=== PATIENT | female | born 1985 | race American Indian/Alaskan Native ===

== ENCOUNTER 2016-10-06 10:22 | Emergency (ER) | payer MEDICAID ==
[2016-10-06 10:41] VITALS: BMI 27.1
[2016-10-06 10:45] VITALS: TEMP 98.8; O2SAT 100
[2016-10-06] MEDS ORDERED: Sodium Chloride 0.9% 1,000 ML IV STA ×2 (10:51→10:52)
[2016-10-06 11:14] LABS: URINE BILIRUBIN NEGATIVE (NEGATIVE); URINE BLOOD NEGATIVE (NEGATIVE); URINE GLUCOSE (UA) NEGATIVE (NEGATIVE); URINE LEUKOCYTE ESTERASE NEGATIVE Leu/uL (NEGATIVE); URINE NITRATE NEGATIVE (NEGATIVE); URINE PROTEIN NEGATIVE mg/dL (<30 mg/dL)
[2016-10-06 11:15] LABS: URINE APPEARANCE CLEAR (CLEAR); URINE COLOR YELLOW (YELLOW)
--- NOTE | 2016-10-06 11:44 | ED PDOC ---
Arrival/HPI - General Chief Complaint: GI Problem Time Seen by Provider: 10/06/16 10:51 Historian: Patient - History of Present Illness Narrative History of Present Illness (Text): 10/06/16 11:26 A 30 year old female with who is 16 weeks , has a past medical history of migraines, presents to the emergency department complaining of nausea and non-bilious non-bloody vomiting for 2 days. Patient notes mild abdominal discomfort and a headache but denies any fever, chills, diarrhea, vaginal bleeding, vaginal discharge, dysuria, frequency, hematuria, chest pain, shortness of breath or any other complaints. Patient reports her last menstrual period June 18. PMD: Non-[facility] provider Time/Duration: Other (2 days) Symptom Course: Unchanged Quality: Other Context: Home Past Medical History - Provider Review Nursing Documentation Reviewed: Yes - Infectious Disease Hx of Infectious Diseases: None - Pulmonary Hx Pulmonary Embolism: Yes - Neurological Hx Migraine: Yes - Psychiatric Hx Substance Use: No - Surgical History Hx Orthopedic Surgery: Yes Other/Comment: L knee ACL - Anesthesia Hx Anesthesia: Yes Hx Anesthesia Reactions: No Hx Malignant Hyperthermia: No Family/Social History - Physician Review Nursing Documentation Reviewed: Yes Family/Social History: No Known Family HX Smoking Status: Former Smoker Hx Alcohol Use: No Hx Substance Use: No Allergies/Home Meds Allergies/Adverse Reactions: Allergies No Known Allergies Allergy (Verified 10/06/16 10:41) Home Medications: Home Meds Medication Instructions Recorded Confirmed Vit Calc,Iron,Folic 1 tab PO DAILY 10/06/16 10/06/16 [ Vitamins] Review of Systems - Physician Review All systems were reviewed & negative as marked: Yes - Review of Systems Constitutional: absent: Fevers, Night Sweats Respiratory: absent: SOB Cardiovascular: absent: Chest Pain Gastrointestinal: Abdominal Pain, Nausea, Vomiting. absent: Diarrhea Genitourinary Female: absent: Dysuria, Frequency, Hematuria, Vaginal Bleeding, Vaginal Discharge Neurological: Headache Physical Exam Vital Signs Reviewed: Yes Vital Signs Temp Pulse Resp BP Pulse Ox 10/06/16 15:45 73 16 121/75 100 10/06/16 14:00 75 16 119/73 100 10/06/16 12:24 79 16 120/75 100 10/06/16 10:45 98.8 F 83 18 113/71 100 Temperature: Afebrile Blood Pressure: Normal Pulse: Regular Respiratory Rate: Normal Appearance: Positive for: Well-Appearing, Non-Toxic, Comfortable Pain Distress: None Mental Status: Positive for: Alert and Oriented X 3 - Systems Exam Head: Present: Atraumatic, Normocephalic Pupils: Present: PERRL Extroacular Muscles: Present: EOMI Conjunctiva: Present: Normal Mouth: Present: Moist Mucous Membranes Neck: Present: Normal Range of Motion Respiratory/Chest: Present: Clear to Auscultation, Good Air Exchange. No: Respiratory Distress, Accessory Muscle Use Cardiovascular: Present: Regular Rate and Rhythm, Normal S1, S2. No: Murmurs Abdomen: Present: Normal Bowel Sounds. No: Tenderness, Distention, Peritoneal Signs Back: Present: Normal Inspection Upper Extremity: Present: Normal Inspection. No: Cyanosis, Edema Lower Extremity: Present: Normal Inspection. No: Edema Neurological: Present: GCS=15, CN II-XII Intact, Speech Normal Skin: Present: Warm, Dry, Normal Color. No: Rashes Psychiatric: Present: Alert, Oriented x 3, Normal Insight, Normal Concentration Medical Decision Making ED Course and Treatment: 10/06/16 11:26 Impression: A 30 year old female with non-bilious non-bloody vomiting. Patient notes mild abdominal discomfort and headache. Plan: -- Transvaginal ultrasound -- Labs -- Urine culture and Urinalysis -- Pepcid, Reglan and IV fluids -- Reassess and disposition Progress Notes: - Lab Interpretations Lab Results: 10/06/16 11:30 10/06/16 12:44 Lab Results 10/06/16 12:44: Sodium 135, Potassium 3.9, Chloride 102, Carbon Dioxide 23, Anion Gap 14, BUN 8, Creatinine 0.5, Est GFR ( Amer) > 60, Est GFR (Non- Af Amer) > 60, Random Glucose 72, Calcium 9.6, Total Bilirubin 0.5, AST 28, ALT 84 H, Alkaline Phosphatase 69, Total Protein 7.3, Albumin 3.9, Globulin 3.5, Albumin/Globulin Ratio 1.1, Lipase 82 10/06/16 11:30: Beta HCG, Quant [id number] H 10/06/16 11:30: WBC 5.1, RBC 4.35, Hgb 13.1, Hct 36.7, MCV 84.4, MCH 30.1, MCHC 35.7, RDW 12.1, Plt Count 242, MPV 9.3, Gran % 60.8, Lymph % (Auto) 29.3, [place] % (Auto) 9.7 H, Eos % (Auto) 0.2 L, Baso % (Auto) 0.0, Gran # 3.07, Lymph # 1.5 , [place] # 0.5, Eos # 0.0, Baso # 0.00 10/06/16 11:00: Urine Color Yellow, Urine Appearance Clear, Urine pH 6.0, Ur Specific [place] 1.020, Urine Protein Negative, Urine Glucose (UA) Negative, Urine Ketones Negative, Urine Blood Negative, Urine Nitrate Negative, Urine Bilirubin Negative, Urine Urobilinogen 1.0 H, Ur Leukocyte Esterase Negative I have reviewed the lab results: Yes - RAD Interpretation Radiology Orders: 10/06/16 11:18 AGE [US] Stat - Medication Orders Current Medication Orders: Discontinued Medications Famotidine (Pepcid) 20 mg IVP STAT STA Stop: 10/06/16 10:52 Last Admin: 10/06/16 11:30 Dose: 20 mg Sodium Chloride (Sodium Chloride 0.9%) 1,000 mls @ 1,000 mls/hr IV .Q1H STA Stop: 10/06/16 11:50 Last Admin: 10/06/16 11:30 Dose: 1,000 mls/hr Sodium Chloride (Sodium Chloride 0.9%) 1,000 mls @ 999 mls/hr IV .Q1H1M STA Stop: 10/06/16 11:52 Last Admin: 10/06/16 11:47 Dose: 999 mls/hr Metoclopramide HCl (Reglan) 10 mg IVP STAT STA Stop: 10/06/16 10:52 Last Admin: 10/06/16 11:30 Dose: 10 mg - Scribe Statement The provider has reviewed the documentation as recorded by the Miller Urias Provider Scribe Attestation: All medical record entries made by the Scribe were at my direction and personally dictated by me. I have reviewed the chart and agree that the record accurately reflects my personal performance of the history, physical exam, medical decision making, and the department course for this patient. I have also personally directed, reviewed, and agree with the discharge instructions and disposition. Disposition/Present on Arrival - Present on Arrival Any Indicators Present on Arrival: No History of DVT/PE: No History of Uncontrolled Diabetes: No Urinary Catheter: No History of Decub. Ulcer: No History Surgical Site Infection Following: None - Disposition Have Diagnosis and Disposition been Completed?: Yes Diagnosis: and not yet delivered in first trimester Disposition: HOME/ ROUTINE Disposition Time: 15:40 Condition: GOOD Discharge Instructions (ExitCare): First Trimester (ED) Additional Instructions: Thank you for letting us take care of you today. Your provider was Dr. Bernard. You were treated for abdominal pain in . The emergency medical care you received today was directed at your acute symptoms. If you were prescribed any medication, please fill it and take as directed. It may take several days for your symptoms to resolve. Return to the Emergency Department if your symptoms worsen, do not improve, or if you have any other problems. Please contact your doctor or call one of the physicians/clinics you have been referred to that are listed on the Patient Visit Information form that is included in your discharge packet. Bring any paperwork you were given at discharge with you along with any medications you are taking to your follow up visit. Our treatment cannot replace ongoing medical care by a primary care provider (PCP) outside of the emergency department. Thank you for allowing the [facility] team to be part of your care today. Follow up with your PROCUREMENT CLERK in 2-3 for re-evaluation. Referrals: [facility] De Oliveira Rebigg, [Primary Care Provider] - Follow up with primary Forms: WORK NOTE
[2016-10-06 12:02] LABS: EOS % 0.2 % (1.5-5.0); GRAN # 3.07 (1.4-6.5); GRAN % 60.8 % (50.0-68.0); HEMOGLOBIN 13.1 gm/dL (12.0-16.0); LYMPH # 1.5 (1.2-3.4); LYMPH % 29.3 % (22.0-35.0); MEAN CELL VOLUME 84.4 fL (80.0-105.0); MEAN CORPUSCULAR HEMOGLOBIN 30.1 pg (25.0-35.0); MEAN CORPUSCULAR HGB CONC 35.7 g/dl (31.0-37.0); MEAN PLATELET VOLUME 9.3 fl (7.0-11.0); MONO # 0.5 (0.1-0.6); MONO % 9.7 % (1.0-6.0); PLATELET COUNT 242 10^3/uL (120.0-450.0); RBC 4.35 10^6/uL (3.5-6.1); RED CELL DISTRIBUTION WIDTH 12.1 % (11.5-14.5); WHITE BLOOD COUNT 5.1 10^3/ul (4.5-11.0)
[2016-10-06 13:14] LABS: ALB/GLOB RATIO 1.1 (1.1-1.8); ALBUMIN 3.9 g/dL (3.0-4.8); ALT/SGPT 84 U/L (7-56); AST/SGOT 28 U/L (15-39); BLOOD UREA NITROGEN 8 mg/dL (7-21); CALCIUM 9.6 mg/dL (8.4-10.5); GFR AFRICAN-AMERICAN > 60; GFR NON-AFRICAN AMERICAN > 60; LIPASE 82 U/L (23-300)
[2016-10-06 13:37] VITALS: RESP 16
--- NOTE | 2016-10-06 15:12 | US ---
PROCEDURE: Obstetrical ultrasound HISTORY: r/o ectopic - suprapubic pain COMPARISON: Not available TECHNIQUE: Transabdominal FINDINGS: There is a single live intrauterine gestation identified. The heart rate is 160 beats per minute. The gestational sac diameter corresponds to 10 weeks 3 days. The crown-rump length corresponds to 10 weeks 4 days. The average ultrasound age is 10 weeks 4 days. The REN by ultrasound is 04/30/2017 A 4 mm yolk sac is visualized. The uterus measures 12.1 x 7.5 x 8.1 cm. There is no uterine mass identified. The cervix measures 3.4 cm in length and is closed. The right ovary measures 2.6 x 1.9 x 4.1 cm. Normal flow is demonstrated. The left ovary measures 3.0 x 1.5 x 2.7 cm. Normal flow is demonstrated. IMPRESSION: Single live intrauterine gestation of approximately 10 weeks 4 days gestational age. heart rate 160 beats per minute. REN is 04/30/2017 by ultrasound. Cervix long and closed.
[2016-10-06 15:46] VITALS: BP 121/75; PULSE 73
== END 2016-10-06 15:46 | disposition home or self-care (01) ==
LOC: ED 10:22 → MERGE 10:22 → ED 15:46
DX: O26.891 Other specified pregnancy related conditions, first trimester (principal); Z3A.10 10 weeks gestation of pregnancy
CPT/HCPCS: 76815; 80053; 81003; 83690; 84702; 85025; 87086; 96361; 96374; 96375; 99285; J2765; J7040

== ENCOUNTER 2017-04-16 19:39 | Emergency (ER) | payer MEDICAID, OTHER ==
[2017-04-16 19:39] VITALS: BMI 27.1
[2017-04-16 20:12] VITALS: TEMP 98; O2SAT 100
[2017-04-16 20:37] LABS: BASO # 0.02 K/mm3 (0.0-2.0); BASO % 0.3 % (0.0-3.0); EOS # 0.1 (0.0-0.7); EOS % 1.6 % (1.5-5.0); GRAN # 3.66 (1.4-6.5); GRAN % 54.8 % (50.0-68.0); HEMOGLOBIN 11.9 g/dL (12.0-16.0); LYMPH # 2.4 (1.2-3.4); LYMPH % 35.5 % (22.0-35.0); MEAN CELL VOLUME 93.6 fl (80.0-105.0); MEAN CORPUSCULAR HEMOGLOBIN 31.6 pg (25.0-35.0); MEAN CORPUSCULAR HGB CONC 33.8 g/dl (31.0-37.0); MEAN PLATELET VOLUME 9.3 fl (7.0-11.0); MONO # 0.5 (0.1-0.6); MONO % 7.8 % (1.0-6.0); RBC 3.76 10^6/uL (3.5-6.1); RED CELL DISTRIBUTION WIDTH 12.4 % (11.5-14.5); WHITE BLOOD COUNT 6.7 10^3/ul (4.5-11.0)
[2017-04-16 20:41] LABS: PH,URINE 6.5 (4.7-8.0); URINE BILIRUBIN NEGATIVE (NEGATIVE); URINE BLOOD LARGE (NEGATIVE); URINE GLUCOSE (UA) NEGATIVE (NEGATIVE); URINE LEUKOCYTE ESTERASE LARGE Leu/uL (NEGATIVE); URINE NITRATE NEGATIVE (NEGATIVE); URINE PROTEIN 30 mg/dL (<30 mg/dL); URINE UROBILINOGEN 0.2 E.U./dL (<1 E.U./dL)
[2017-04-16 20:42] LABS: URINE APPEARANCE CLOUDY (CLEAR); URINE COLOR YELLOW (YELLOW)
[2017-04-16 20:43] LABS: INR 1.02 (0.93-1.08); PARTIAL THROMBOPLASTIN TIME 26.3 Seconds (25.1-36.5); PROTHROMBIN TIME 11.6 SECONDS (9.4-12.5)
[2017-04-16 20:48] LABS: ALBUMIN 3.5 g/dL (3.0-4.8); ALT/SGPT 56 U/L (7-56); AST/SGOT 28 U/L (14-36); BLOOD UREA NITROGEN 9 mg/dL (7-21); CALCIUM 10.2 mg/dL (8.4-10.5); GFR AFRICAN-AMERICAN > 60; GFR NON-AFRICAN AMERICAN > 60
[2017-04-16 20:52] LABS: URINE BACTERIA SMALL (NEG); URINE WBC TNTC /hpf (0-6)
[2017-04-16] MEDS ORDERED: Enoxaparin 40 mg Syringe SC STA (22:43)
[2017-04-16 23:29] VITALS: BP 128/82; PULSE 82; RESP 16
--- NOTE | 2017-04-16 23:47 | ED PDOC ---
Arrival/HPI - General Chief Complaint: Lower Extremity Problem/Injury Time Seen by Provider: 04/16/17 20:08 Historian: Patient - History of Present Illness Narrative History of Present Illness (Text): 04/16/17 20:11 31 year old female, whose past medical history includes migraines and Pulmonary Embolism, presents to the Emergency department complaining of bilateral leg swelling for 2-3 days. Patient informs one week ago s/p induction. Patient states she was supposed to be on 40mg subcutaneous Lovenox for DVT prophylaxis but was unable to refill her prescription. Patient states her pharmacy did not receive the prescription yet. Patient denies any fever, chills , nausea, vomiting, chest pain, shortness of breath, abdominal pain or any other complaints. 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 - Integumentary Hx Dermatological Disorder: No - Musculoskeletal/Rheumatological Hx Musculoskeletal Disorders: No - Gastrointestinal Hx Gastrointestinal Disorders: No - Genitourinary/Gynecological Hx Genitourinary Disorders: No - Psychiatric Hx Psychophysiologic Disorder: No Hx Substance Use: No - Surgical History Hx Orthopedic Surgery: Yes Other/Comment: L knee ACL - Anesthesia Hx Anesthesia: Yes Hx Anesthesia Reactions: No Hx Malignant Hyperthermia: No Family/Social History - Physician Review Nursing Documentation Reviewed: Yes Family/Social History: No Known Family HX Smoking Status: Former Smoker Hx Alcohol Use: No Hx Substance Use: No Allergies/Home Meds Allergies/Adverse Reactions: Allergies No Known Allergies Allergy (Verified 04/16/17 20:11) Home Medications: Home Meds Medication Instructions Recorded Confirmed Vit Calc,Iron,Folic 1 tab PO DAILY 10/06/16 10/06/16 [ Vitamins] Review of Systems - Physician Review All systems were reviewed & negative as marked: Yes - Review of Systems Constitutional: Normal. absent: Fevers Eyes: Normal ENT: Normal Respiratory: Normal. absent: SOB Cardiovascular: Normal. absent: Chest Pain Gastrointestinal: Normal. absent: Abdominal Pain, Nausea, Vomiting Genitourinary Female: Normal Musculoskeletal: Other (Bilateral leg swelling) Skin: Normal Neurological: Normal Endocrine: Normal Hemo/Lymphatic: Normal Psychiatric: Normal Physical Exam Vital Signs Reviewed: Yes Vital Signs Temp Pulse Resp BP Pulse Ox 04/16/17 23:28 82 16 128/82 100 04/16/17 20:07 98.0 F 76 18 127/80 100 Temperature: Afebrile Blood Pressure: Normal Pulse: Regular Respiratory Rate: Normal Appearance: Positive for: Well-Appearing, Non-Toxic, Comfortable Pain Distress: None Mental Status: Positive for: Alert and Oriented X 3 - Systems Exam Head: Present: Atraumatic, Normocephalic Pupils: Present: PERRL Extroacular Muscles: Present: EOMI Conjunctiva: Present: Normal Mouth: Present: Moist Mucous Membranes Neck: Present: Normal Range of Motion Respiratory/Chest: Present: Clear to Auscultation, Good Air Exchange. No: Respiratory Distress, Accessory Muscle Use Cardiovascular: Present: Regular Rate and Rhythm, Normal S1, S2. No: Murmurs Abdomen: Present: Normal Bowel Sounds. No: Tenderness, Distention, Peritoneal Signs Back: Present: Normal Inspection Upper Extremity: Present: Normal Inspection, NORMAL PULSES. No: Cyanosis, Edema Lower Extremity: Present: Edema (Bilateral pital pedal edema+1 ), NORMAL PULSES Neurological: Present: GCS=15, CN II-XII Intact, Speech Normal Skin: Present: Warm, Dry, Normal Color. No: Rashes Psychiatric: Present: Alert, Oriented x 3, Normal Insight, Normal Concentration Medical Decision Making ED Course and Treatment: 04/17/17 20:11 Impression: 31 year old female presents to the Emergency department for bilateral leg swelling. Plan: -- Labs -- Lovenox -- Urine Culture -- Urinalysis -- US of Lower Extremity -- Reassess and disposition Progress Notes: - Lab Interpretations Lab Results: 04/16/17 20:20 04/16/17 20:20 Lab Results 04/16/17 20:27: Urine Color Yellow, Urine Appearance Cloudy, Urine pH 6.5, Ur Specific [place] 1.015, Urine Protein 30 H, Urine Glucose (UA) Negative, Urine Ketones Negative, Urine Blood Large H, Urine Nitrate Negative, Urine Bilirubin Negative, Urine Urobilinogen 0.2, Ur Leukocyte Esterase Large H, Urine RBC 2 - 5 , Urine WBC Tntc, Ur Epithelial Cells 1 - 3, Urine Bacteria Small 04/16/17 20:20: Sodium 141, Potassium 4.0, Chloride 107, Carbon Dioxide 25, Anion Gap 13, BUN 9, Creatinine 0.7, Est GFR ( Amer) > 60, Est GFR (Non- Af Amer) > 60, Random Glucose 69 L, Calcium 10.2, Total Bilirubin 0.3, AST 28, ALT 56, Alkaline Phosphatase 116, Total Protein 6.9, Albumin 3.5, Globulin 3.4, Albumin/Globulin Ratio 1.0 L 04/16/17 20:20: PT 11.6, INR 1.02, APTT 26.3 04/16/17 20:20: WBC 6.7 D, RBC 3.76, Hgb 11.9 L, Hct 35.2 L, MCV 93.6, MCH 31.6 , MCHC 33.8, RDW 12.4, Plt Count 266, MPV 9.3, Gran % 54.8, Lymph % (Auto) 35.5 H, [place] % (Auto) 7.8 H, Eos % (Auto) 1.6, Baso % (Auto) 0.3, Gran # 3.66, Lymph # 2.4, [place] # 0.5, Eos # 0.1, Baso # 0.02 - RAD Interpretation Radiology Orders: 04/16/17 20:11 DUPLEX LOWER EXTRM VEIN BILAT [US] Stat - Medication Orders Current Medication Orders: Discontinued Medications Enoxaparin Sodium (Lovenox) 40 mg SC STAT STA PRN Reason: Protocol Stop: 04/16/17 22:44 Last Admin: 04/16/17 23:22 Dose: 40 mg Subcutaneous Administrations Document 04/16/17 23:22 [place] (Rec: 04/16/17 23:23 [place] [id number]) Injection Site MAR Injection Site Right Abdomen Charges for Administration # of Subcutaneous Administrations 1 - Scribe Statement The provider has reviewed the documentation as recorded by the Devaniblisa Krishnamurthy. All medical record entries made by the Scribe were at my direction and personally dictated by me. I have reviewed the chart and agree that the record accurately reflects my personal performance of the history, physical exam, medical decision making, and the department course for this patient. I have also personally directed, reviewed, and agree with the discharge instructions and disposition. Disposition/Present on Arrival - Present on Arrival Any Indicators Present on Arrival: No History of DVT/PE: Yes History of Uncontrolled Diabetes: No Urinary Catheter: No History of Decub. Ulcer: No History Surgical Site Infection Following: Orthopedic Procedures - Disposition Have Diagnosis and Disposition been Completed?: Yes Diagnosis: Leg swelling Disposition: HOME/ ROUTINE Disposition Time: 22:00 Condition: GOOD Discharge Instructions (ExitCare): Leg Edema (ED) Additional Instructions: Thank you for letting us take care of you today. The emergency medical care you received today was directed at your acute symptoms. If you were prescribed any medication, please fill it and take as directed. It may take several days for your symptoms to resolve. Return to the Emergency Department if your symptoms worsen, do not improve, or if you have any other problems. Please contact your doctor or call one of the physicians/clinics you have been referred to that are listed on the Patient Visit Information form that is included in your discharge packet. Bring any paperwork you were given at discharge with you along with any medications you are taking to your follow up visit. Our treatment cannot replace ongoing medical care by a primary care provider (PCP) outside of the emergency department. Thank you for allowing the [facility] team to be part of your care today. You received Lovenox here in the ER. Go to your pharmacy tomorrow to bean picker the Lovenox prescription. Please follow up with your CHRISTIAN SCIENCE PRACTITIONER doctor in 1-2 days for follow up. Referrals: Rachel Tuttle MD [Primary Care Provider] - Follow up with primary Forms: [employer] (German)
--- NOTE | 2017-04-17 18:46 | US ---
HISTORY: Leg pain and swelling. Evaluate for DVT PHYSICIAN(S): Juan Alberto Rogel MD. TECHNIQUE: Duplex sonography and color-flow Doppler with graded compression were used to evaluate the deep venous systems of both lower extremities. FINDINGS: The visualized deep venous systems of both lower extremities are sonographically normal and compressible. Normal wave forms and augmentation are seen. There is no sonographic evidence for deep venous thrombosis in the visualized segments of both lower extremities. IMPRESSION: No sonographic evidence for deep venous thrombosis in the visualized segments of both lower extremities.
== END 2017-04-16 23:29 | disposition home or self-care (01) ==
LOC: ED 19:39
DX: M79.89 Other specified soft tissue disorders (principal); Z86.711 Personal history of pulmonary embolism; Z79.01 Long term (current) use of anticoagulants
CPT/HCPCS: 80053; 81001; 85025; 85610; 85730; 93970; 96372; 99284; J1650

== ENCOUNTER 2017-06-08 22:47 | Emergency (ER) | payer OTHER ==
[2017-06-08 22:48] VITALS: BMI 27.1
[2017-06-08 23:28] VITALS: RESP 18
--- NOTE | 2017-06-09 00:13 | ED PDOC ---
Arrival/HPI <Derrell Pelaez - Last Filed: 06/09/17 05:59> - General Historian: Patient EM Caveat: Acuity of Condition - History of Present Illness Time/Duration: 24 hours Symptom Onset: Gradual Symptom Course: Unchanged, Worsening Quality: Aching, Pressure, Tightness Severity Level: Moderate Activities at Onset: Rest Context: Sitting, Standing, Walking, Exertion, Home <Chrissy Villalobos - Last Filed: 06/09/17 10:44> - General Chief Complaint: Lower Extremity Problem/Injury Time Seen by Provider: 06/09/17 00:02 - History of Present Illness Narrative History of Present Illness (Text): 06/09/17 00:05 Pt is a 31 year old female with a PMH of PE, presents to the ED for evaluation of bilateral Lower leg pain and swelling, left worse than the right for the past 2 days. Pt reports onset of LE swelling s/p delivery of her baby 2 months ago. Pt was assessed for a DVT here in the ER one month ago and discharged with negative DVT/PE. Reports worsening of pain while standing and walking. There is associated pain in the low back and hips. Pt reports that during her , she had severe sciatica with referral down the left leg. Denies fever, shortness of breath, chest pain, or any other complaints. 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 - Integumentary Hx Dermatological Disorder: No - Musculoskeletal/Rheumatological Hx Musculoskeletal Disorders: No - Gastrointestinal Hx Gastrointestinal Disorders: No - Genitourinary/Gynecological Hx Genitourinary Disorders: No - Psychiatric Hx Psychophysiologic Disorder: No Hx Substance Use: No - Surgical History Hx Orthopedic Surgery: Yes (l knee acl) Other/Comment: L knee ACL - Anesthesia Hx Anesthesia: Yes Hx Anesthesia Reactions: No Hx Malignant Hyperthermia: No <Chrissy Villalobos - Last Filed: 06/09/17 10:44> Family/Social History - Physician Review Nursing Documentation Reviewed: Yes Family/Social History: Unknown Family HX Smoking Status: Former Smoker Hx Alcohol Use: No Hx Substance Use: No <Chrissy Villalobos - Last Filed: 06/09/17 10:44> Allergies/Home Meds <Derrell Pelaez - Last Filed: 06/09/17 05:59> <Chrissy Villalobos - Last Filed: 06/09/17 10:44> Allergies/Adverse Reactions: Allergies No Known Allergies Allergy (Verified 06/08/17 23:23) Home Medications: Home Meds Medication Instructions Recorded Confirmed No Known Home Med 06/08/17 06/08/17 Review of Systems - Review of Systems Constitutional: Normal Eyes: Normal ENT: Normal Respiratory: Normal Cardiovascular: Normal Gastrointestinal: Normal Genitourinary Female: Normal Musculoskeletal: Back Pain, Joint Swelling (bilateral ankles) Skin: Normal Neurological: Normal Endocrine: Normal Hemo/Lymphatic: Normal Psychiatric: Normal <Chrissy Villalobos - Last Filed: 06/09/17 10:44> Physical Exam Vital Signs Reviewed: Yes Temperature: Afebrile Blood Pressure: Normal Pulse: Regular Respiratory Rate: Normal Appearance: Positive for: Well-Appearing, Non-Toxic, Comfortable Pain Distress: Mild Mental Status: Positive for: Alert and Oriented X 3 - Systems Exam Head: Present: Atraumatic, Normocephalic Pupils: Present: PERRL Extroacular Muscles: Present: EOMI Conjunctiva: Present: Normal Mouth: Present: Moist Mucous Membranes Neck: Present: Normal Range of Motion Respiratory/Chest: Present: Clear to Auscultation, Good Air Exchange. No: Respiratory Distress, Accessory Muscle Use Cardiovascular: Present: Regular Rate and Rhythm, Normal S1, S2. No: Murmurs Abdomen: Present: Normal Bowel Sounds. No: Tenderness, Distention, Peritoneal Signs Back: Present: Normal Inspection Upper Extremity: Present: Normal Inspection. No: Cyanosis, Edema Lower Extremity: Present: Normal Inspection, NORMAL PULSES, Normal ROM, Tenderness (left ankle and calf pain), Swelling (bilateral LE, L>R), Neurovascularly Intact. No: Edema, CALF TENDERNESS, Cyanosis, Radha's Sign, Erythema, Deformity, Temperature Abnormalties, Capillary Refill < 2 s, Other Neurological: Present: GCS=15, CN II-XII Intact, Speech Normal, Motor Func Grossly Intact, Normal Sensory Function, Norm Deep Tendon Reflexes, Gait Normal Skin: Present: Warm, Dry, Normal Color. No: Rashes Psychiatric: Present: Alert, Oriented x 3, Normal Insight, Normal Concentration <GriseldaChrissy paredes Wendy - Last Filed: 06/09/17 10:44> Vital Signs Temp Pulse Resp BP Pulse Ox 06/09/17 06:17 98.1 F 84 18 116/86 99 06/09/17 03:20 97.6 F 90 18 118/95 H 99 06/08/17 23:23 98.0 F 87 18 127/75 100 Medical Decision Making <Derrell Pelaez - Last Filed: 06/09/17 05:59> - Lab Interpretations I have reviewed the lab results: Yes (D-dimer 399) - RAD Interpretation Kennel Attendant: Radiologist - EKG Interpretation Interpreted by ED Physician: Yes <GriseldaChrissy L - Last Filed: 06/09/17 10:44> ED Course and Treatment: EKG: Ordered, reviewed, and independently interpreted the EKG. Rate : 76 BPM Rhythm : NSR Interpretation : 1st degree AV block 06/09/17 05:55 CT Angiography Chest With Intravenous Contrast FINDINGS: Pulmonary arteries: Examination is limited due to technique. No large central pulmonary artery emboli are identified. Segmental and/or subsegmental pulmonary artery emboli may not be seen on this exam. Aorta: No acute findings. No thoracic aortic aneurysm. Lungs: Unremarkable. No mass. No consolidation. Pleural space: Unremarkable. No significant effusion. No pneumothorax. Heart: Unremarkable. No cardiomegaly. No significant pericardial effusion. No evidence of RV dysfunction. Bones/joints: No acute fracture. No dislocation. Soft tissues: Unremarkable. Lymph nodes: Unremarkable. No enlarged lymph nodes. IMPRESSION: Examination is limited due to technique. No large central pulmonary artery emboli are identified. Segmental and/or subsegmental pulmonary artery emboli may not be seen on this exam. Dictated and Authenticated by: Abdulaizz Ferguson MD 06/09/2017 5:37 AM Eastern Time ([place] & [place]) (Derrell Pelaez) 06/09/17 00:13 Impression Pt is a 31 year old female with a PMH of PE, presents to the ED for evaluation of bilateral Lower leg pain and swelling, left worse than the right for the past 2 days. Negative Radha sign bilat, mild calf tenderness of the Left LE, Neg SLR bilateral; point tenderness of the left ankle in flexion and extension Ddx: DVT Lumbar radiculopathy peripheral neuropathy Plan doppler to r/o DVT labs assess and dispo Lovenox 40mg Progress Note Radiology consult reported NEG bilateral duplex of the LE D-dimer of 399; Wells Score for DVT: 1 (low probability); Wells Score for PE: 4.5 (intermed) Pt has no chest pain or shortness of breath and rests comfortably in bed *Endorsed to Dr. Adilene Pelaez before disposition (Chrissy Villalobos) - Lab Interpretations Lab Results: 06/09/17 02:35 06/09/17 02:35 Lab Results 06/09/17 02:35: PT 11.0, INR 0.97, APTT 30.5, D-Dimer, Quantitative 399 H 06/09/17 02:35: Sodium 138, Potassium 3.8, Chloride 104, Carbon Dioxide 27, Anion Gap 11, BUN 13, Creatinine 0.8, Est GFR ( Amer) > 60, Est GFR (Non- Af Amer) > 60, Random Glucose 112 H, Calcium 9.6, Total Bilirubin 0.2, AST 57 H D, ALT 94 H, Alkaline Phosphatase 82, Total Protein 6.8, Albumin 3.6, Globulin 3.2, Albumin/Globulin Ratio 1.1 06/09/17 02:35: Urine Color Yellow, Urine Appearance Clear, Urine pH 6.0, Ur Specific [place] 1.015, Urine Protein Negative, Urine Glucose (UA) Negative, Urine Ketones Negative, Urine Blood Negative, Urine Nitrate Negative, Urine Bilirubin Negative, Urine Urobilinogen 0.2, Ur Leukocyte Esterase Negative 06/09/17 02:35: WBC 7.4, RBC 3.95, Hgb 11.8 L, Hct 34.6 L, MCV 87.6 D, MCH 29.9 , MCHC 34.1, RDW 11.9, Plt Count 270, MPV 8.8, Gran % 48.2 L, Lymph % (Auto) 41.9 H, [place] % (Auto) 7.6 H, Eos % (Auto) 2.0, Baso % (Auto) 0.3, Gran # 3.56, Lymph # (Auto) 3.1, [place] # (Auto) 0.6, Eos # (Auto) 0.2, Baso # (Auto) 0.02 - RAD Interpretation Narrative RAD Interpretations (Text): 06/09/17 02:12 Venous doppler of the bilateral LE NEGATIVE (Chrissy Villalobos) Radiology Orders: 06/09/17 00:02 DUPLEX LOWER EXTRM VEIN BILAT [US] Stat 06/09/17 03:31 ANGIO CHEST PE PROTOCOL [CT] Stat - Medication Orders Current Medication Orders: Discontinued Medications Enoxaparin Sodium (Lovenox) 40 mg SC STAT STA PRN Reason: Protocol Stop: 06/09/17 01:46 Last Admin: 06/09/17 03:14 Dose: 40 mg MAR aPTT Document 06/09/17 03:14 ELI (Rec: 06/09/17 03:16 ELI [id number]) aPTT aPTT (secs) 30.5 Subcutaneous Administrations Document 06/09/17 03:14 ELI (Rec: 06/09/17 03:16 ELI [id number]) Injection Site MAR Injection Site Right Abdomen Charges for Administration # of Subcutaneous Administrations 1 Disposition/Present on Arrival - Disposition Disposition Time: 03:19 Patient Plan: Discharge <Derrell Pelaez - Last Filed: 06/09/17 05:59> - Present on Arrival Any Indicators Present on Arrival: Yes History of DVT/PE: No History of Uncontrolled Diabetes: No Urinary Catheter: No History of Decub. Ulcer: No History Surgical Site Infection Following: None - Disposition Have Diagnosis and Disposition been Completed?: Yes Patient Plan: Discharge <Chrissy Villalobos - Last Filed: 06/09/17 10:44> - Disposition Diagnosis: Dependent edema Disposition: HOME/ ROUTINE Condition: GOOD Additional Instructions: Deabeth Loza, Thank you for letting us take care of you today. The emergency medical care you received today was directed at your acute symptoms. If you were prescribed any medication, please fill it and take as directed. It may take several days for your symptoms to resolve. Return to the Emergency Department if your symptoms worsen, do not improve, or if you have any other problems. Your ULTRASOUND was negative for blood clots, Your CT Angio of the Chest did not show any PE. Please contact your doctor or call one of the physicians/clinics you have been referred to that are listed on the Patient Visit Information form that is included in your discharge packet. Bring any paperwork you were given at discharge with you along with any medications you are taking to your follow up visit. Our treatment cannot replace ongoing medical care by a primary care provider (PCP) outside of the emergency department. Thank you for allowing the [facility] team to be part of your care today. Elevate your legs as much as possible, follow up with your regular doctor later this week Best- Dr. Derrell Pelaez Referrals: Rachel Tuttle MD [Primary Care Provider] - Follow up with primary Iain Coronado MD [Staff Provider] - Follow up with primary Forms: [employer] ([place])
[2017-06-09] MEDS ORDERED: Enoxaparin 40 mg Syringe SC STA (01:45)
[2017-06-09 02:49] LABS: URINE APPEARANCE CLEAR (CLEAR); URINE BILIRUBIN NEGATIVE (NEGATIVE); URINE BLOOD NEGATIVE (NEGATIVE); URINE COLOR YELLOW (YELLOW); URINE GLUCOSE (UA) NEGATIVE (NEGATIVE); URINE LEUKOCYTE ESTERASE NEGATIVE Leu/uL (NEGATIVE); URINE PROTEIN NEGATIVE mg/dL (<30 mg/dL); URINE UROBILINOGEN 0.2 E.U./dL (<1 E.U./dL)
[2017-06-09 02:52] LABS: BASO # 0.02 K/mm3 (0.0-2.0); BASO % 0.3 % (0.0-3.0); EOS # 0.2 (0.0-0.7); GRAN # 3.56 (1.4-6.5); GRAN % 48.2 % (50.0-68.0); HEMOGLOBIN 11.8 g/dL (12.0-16.0); LYMPH # 3.1 (1.2-3.4); LYMPH % 41.9 % (22.0-35.0); MEAN CORPUSCULAR HEMOGLOBIN 29.9 pg (25.0-35.0); MEAN CORPUSCULAR HGB CONC 34.1 g/dl (31.0-37.0); MEAN PLATELET VOLUME 8.8 fl (7.0-11.0); MONO # 0.6 (0.1-0.6); MONO % 7.6 % (1.0-6.0); RBC 3.95 10^6/uL (3.5-6.1); RED CELL DISTRIBUTION WIDTH 11.9 % (11.5-14.5); WHITE BLOOD COUNT 7.4 10^3/ul (4.5-11.0)
[2017-06-09 02:55] LABS: MEAN CELL VOLUME 87.6 fl (80.0-105.0)
[2017-06-09 02:57] LABS: ALB/GLOB RATIO 1.1 (1.1-1.8); ALBUMIN 3.6 g/dL (3.0-4.8); ALT/SGPT 94 U/L (7-56); AST/SGOT 57 U/L (14-36); BLOOD UREA NITROGEN 13 mg/dL (7-21); CALCIUM 9.6 mg/dL (8.4-10.5); GFR AFRICAN-AMERICAN > 60; GFR NON-AFRICAN AMERICAN > 60
[2017-06-09 03:03] LABS: INR 0.97 (0.93-1.08); PARTIAL THROMBOPLASTIN TIME 30.5 Seconds (25.1-36.5)
[2017-06-09 03:27] VITALS: O2SAT 99
[2017-06-09] MEDS ORDERED: Iodixanol 320 MG/ML 100 ML BOTTLE IV ONE (04:27)
--- NOTE | 2017-06-09 05:37 | CT ---
EXAM: CT Angiography Chest With Intravenous Contrast CLINICAL HISTORY: 31 years old, female; Abnormal findings; Abnormal diagnostic tests; Elevated d-dimer TECHNIQUE: Axial computed tomographic angiography images of the chest with intravenous contrast using pulmonary embolism protocol. All CT scans at this facility use one or more dose reduction techniques, viz.: automated exposure control; ma/kV adjustment per patient size (including targeted exams where dose is matched to indication; i.e. head); or iterative reconstruction technique. MIP reconstructed images were created and reviewed. Coronal and sagittal reformatted images were created and reviewed. CONTRAST: 96 mL of visi 320 administered intravenously. COMPARISON: No relevant prior studies available. FINDINGS: Pulmonary arteries: Examination is limited due to technique. No large central pulmonary artery emboli are identified. Segmental and/or subsegmental pulmonary artery emboli may not be seen on this exam. Aorta: No acute findings. No thoracic aortic aneurysm. Lungs: Unremarkable. No mass. No consolidation. Pleural space: Unremarkable. No significant effusion. No pneumothorax. Heart: Unremarkable. No cardiomegaly. No significant pericardial effusion. No evidence of RV dysfunction. Bones/joints: No acute fracture. No dislocation. Soft tissues: Unremarkable. Lymph nodes: Unremarkable. No enlarged lymph nodes. IMPRESSION: Examination is limited due to technique. No large central pulmonary artery emboli are identified. Segmental and/or subsegmental pulmonary artery emboli may not be seen on this exam.
[2017-06-09 06:18] VITALS: BP 116/86; PULSE 84; TEMP 98.1
--- NOTE | 2017-06-09 10:00 | CARD ---
APPROVED REPORT EKG Measurement Heart [id number] <Conclusion> Sinus rhythm with 1st degree AV block Otherwise normal ECG
== END 2017-06-09 06:18 | disposition home or self-care (01) ==
LOC: ED 22:47
DX: R60.9 Edema, unspecified (principal)
CPT/HCPCS: 71275; 80053; 81003; 85025; 85378; 85610; 85730; 93005; 93970; 96372; 99285; J1650; Q9967

== ENCOUNTER 2018-01-05 19:23 | Emergency (ER) | payer OTHER ==
[2018-01-05 20:16] VITALS: BMI 33.4
[2018-01-05 20:18] VITALS: RESP 19; TEMP 98.5
[2018-01-05] MEDS ORDERED: Morphine 2 mg/ml ISec IVP STA (20:57)
[2018-01-05 21:57] LABS: BASO # 0.02 K/mm3 (0.0-2.0); BASO % 0.2 % (0.0-3.0); EOS # 0.2 (0.0-0.7); EOS % 1.9 % (1.5-5.0); GRAN # 4.55 (1.4-6.5); GRAN % 53.6 % (50.0-68.0); HEMOGLOBIN 13.1 g/dL (12.0-16.0); LYMPH # 3.3 (1.2-3.4); LYMPH % 38.6 % (22.0-35.0); MEAN CELL VOLUME 85.6 fl (80.0-105.0); MEAN CORPUSCULAR HEMOGLOBIN 29.1 pg (25.0-35.0); MEAN PLATELET VOLUME 9.1 fl (7.0-11.0); MONO # 0.5 (0.1-0.6); MONO % 5.7 % (1.0-6.0); RBC 4.5 10^6/uL (3.5-6.1); RED CELL DISTRIBUTION WIDTH 12.1 % (11.5-14.5); WHITE BLOOD COUNT 8.5 10^3/ul (4.5-11.0)
--- NOTE | 2018-01-05 21:58 | ED PDOC ---
Arrival/HPI - General Historian: Patient - History of Present Illness Narrative History of Present Illness (Text): 01/05/18 21:55 32 year old female, whose past medical history includes migraines and Pulmonary Embolism, presents to the Emergency department with pain to right knee and back. Patient states her back pain feels like a spasm that is not getting better. Patient informs PMD put her on Flexeril, which did not help her pain. Patient has a history of protein C and factor 5 deficiency. Patient denies any fever, shortness of breath, recent travel, numbness, weakness, trauma, or any other complaint. Time/Duration: Prior to Arrival <Denae Florentino PA-C - Last Filed: 01/06/18 16:38> <Shubham Giang - Last Filed: 01/07/18 06:10> - General Chief Complaint: Lower Extremity Problem/Injury Time Seen by Provider: 01/05/18 20:52 Past Medical History - Provider Review Nursing Documentation Reviewed: Yes - Infectious Disease Hx of Infectious Diseases: None - Cardiac Hx Cardiac Disorders: No - Pulmonary Hx Respiratory Disorders: No - Neurological Hx Neurological Disorder: Yes Hx Migraine: Yes - HEENT Hx HEENT Disorder: No - Renal Hx Renal Disorder: No - Endocrine/Metabolic Hx Endocrine Disorders: No - Hematological/Oncological Hx Blood Disorders: Yes 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 - Integumentary Hx Dermatological Disorder: No - Musculoskeletal/Rheumatological Hx Musculoskeletal Disorders: No - Gastrointestinal Hx Gastrointestinal Disorders: No - Genitourinary/Gynecological Hx Genitourinary Disorders: No - Psychiatric Hx Psychophysiologic Disorder: No Hx Substance Use: No - Surgical History Hx Orthopedic Surgery: Yes (l knee acl) Other/Comment: L knee ACL - Anesthesia Hx Anesthesia: Yes Hx Anesthesia Reactions: No Hx Malignant Hyperthermia: No <Denae Florentino PA-C - Last Filed: 01/06/18 16:38> Family/Social History - Physician Review Nursing Documentation Reviewed: Yes Family/Social History: No Known Family HX Smoking Status: Former Smoker Hx Alcohol Use: No Hx Substance Use: No <Denae Florentino PA-C - Last Filed: 01/06/18 16:38> Allergies/Home Meds <Denae Floretnino PA-C - Last Filed: 01/06/18 16:38> <Mandeep Giangont - Last Filed: 01/07/18 06:10> Allergies/Adverse Reactions: Allergies No Known Allergies Allergy (Verified 01/05/18 20:16) Review of Systems - Physician Review All systems were reviewed & negative as marked: Yes - Review of Systems Constitutional: absent: Fevers, Other (Recent travel; trauma) Respiratory: absent: SOB, Cough Musculoskeletal: Arthralgias, Back Pain Neurological: absent: Other (numbness) <Denae Florentino PA-C - Last Filed: 01/06/18 16:38> Physical Exam Vital Signs Reviewed: Yes Vital Signs Temp Pulse Resp BP Pulse Ox 01/05/18 20:16 98.5 F 97 H 19 106/72 98 Temperature: Afebrile Blood Pressure: Normal Pulse: Tachycardic Respiratory Rate: Normal Appearance: Positive for: Well-Appearing, Non-Toxic, Comfortable Pain Distress: None Mental Status: Positive for: Alert and Oriented X 3 - Systems Exam Head: Present: Atraumatic, Normocephalic Pupils: Present: PERRL Extroacular Muscles: Present: EOMI Conjunctiva: Present: Normal Mouth: Present: Moist Mucous Membranes Neck: Present: Normal Range of Motion. No: MIDLINE TENDERNESS Respiratory/Chest: Present: Clear to Auscultation, Good Air Exchange. No: Respiratory Distress, Accessory Muscle Use Cardiovascular: Present: Regular Rate and Rhythm, Normal S1, S2. No: Murmurs Abdomen: No: Tenderness, Distention, Peritoneal Signs Back: Present: Normal Inspection, Other (point tenderness to right mid-back). No: CVA Tenderness, Midline Tenderness Upper Extremity: Present: Normal Inspection. No: Cyanosis, Edema Lower Extremity: Present: Normal Inspection, NORMAL PULSES, Normal ROM, Neurovascularly Intact, Capillary Refill < 2 s. No: Edema, CALF TENDERNESS, Tenderness, Swelling, Temperature Abnormalties Neurological: Present: GCS=15, CN II-XII Intact, Speech Normal, Motor Func Grossly Intact, Normal Sensory Function Skin: Present: Warm, Dry, Normal Color. No: Rashes Psychiatric: Present: Alert, Oriented x 3, Normal Insight, Normal Concentration <Denae Florentino PA-C - Last Filed: 01/06/18 16:38> Vital Signs Temp Pulse Resp BP Pulse Ox 01/06/18 02:15 98.5 F 90 19 104/62 99 01/05/18 20:16 98.5 F 97 H 19 106/72 98 <Shubham Giang - Last Filed: 01/07/18 06:10> Medical Decision Making ED Course and Treatment: 01/05/18 21:59 Impression: 32 year old female presents with back pain and knee pain. Plan: -- CT angio -- EKG -- Labs -- Chest X-ray -- Morphine -- US lower extremity -- Reassess and disposition Prior Visits: Notes and results from previous visits were reviewed. Progress Notes: Uhcg (-) EKG : NSR at 76 bpm, no acute ST changes, as read by PA CXR : NAD, as read by PA US duplex R leg : (-) DVT. Labs reviewed : d-dimer (+), rest of the labs wnl. 01/06/18 01:17 CTA OF THE CHEST WITH IV CONTRAST : FINDINGS: Normal enhancement of the main pulmonary artery and right and left pulmonary arteries. Normal enhancement of the bilateral peripheral pulmonary arteries. There is no demonstrated pulmonary embolism. Normal thoracic aorta and visualized great vessels. There is no demonstrated aortic dissection. Normal heart and pericardium. Normal mediastinum. Normal hilar regions. Normal visualized trachea and bronchi. The lungs are well expanded. Normal pulmonary parenchyma. Normal pleura. Normal chest wall structures. Normal osseous structures. Normal visualized upper abdomen. IMPRESSION: Normal CTA chest examination, without a demonstrated pulmonary embolism or arterial dissection. On re-evaluation, patient reports no CP or SOB. On exam, patient remains AAOx3, in no acute distress. Given toradol IV. Diagnostic results d/w the patient in great detail. Diagnosis of musculoskeletal leg and back pain d/w the patient. Based on history, exam and diagnostic results, plan will be for outpatient follow up. Patient instructed to follow-up with pmd in 1-2 days without fail. Advised to take medication as prescribed. Return to the emergency room at any time for any new or worsening symptoms. Patient states she fully agrees with and understands discharge instructions. States that she agrees with the plan and disposition. Verbalized and repeated discharge instructions and plan. I have given the patient opportunity to ask any additional questions. - RAD Interpretation Radiology Orders: 01/05/18 20:54 ANGIO CHEST PE PROTOCOL [CT] Stat DUPLEX LOWER EXTRM VEIN RIGHT [US] Stat 01/05/18 20:55 CHEST PORTABLE [RAD] Stat - Medication Orders Current Medication Orders: Discontinued Medications Morphine Sulfate (Morphine) 2 mg IVP STAT STA Stop: 01/05/18 20:58 <Denae Florentino PA-C - Last Filed: 01/06/18 16:38> ED Course and Treatment: 01/07/18 06:10 The documented history was done by the physician regional marketing manager. The documented physical exam was done by the physician regional marketing manager. The documented procedures were done by the physician regional marketing manager, I was available for consultation during the PA/SUPERVISOR VENEER evaluation. The chart was reviewed by me, and I agree with the management and plan. - Lab Interpretations Lab Results: 01/05/18 21:40 01/05/18 21:40 Lab Results 01/05/18 21:40: PT 11.4, INR 1.00, APTT 27.6, D-Dimer, Quantitative 447 H 01/05/18 21:40: Sodium 140, Potassium 4.5, Chloride 105, Carbon Dioxide 28, Anion Gap 11, BUN 10, Creatinine 0.7, Est GFR ( Amer) > 60, Est GFR (Non- Af Amer) > 60, Random Glucose 89, Calcium 9.4, Magnesium 2.2, Total Bilirubin 0.3, AST 31, ALT 35, Alkaline Phosphatase 108, Total Protein 7.9, Albumin 4.3, Globulin 3.6, Albumin/Globulin Ratio 1.2 01/05/18 21:40: WBC 8.5, RBC 4.50, Hgb 13.1, Hct 38.5, MCV 85.6, MCH 29.1, MCHC 34.0, RDW 12.1, Plt Count 261, MPV 9.1, Gran % 53.6, Lymph % (Auto) 38.6 H, Morton % (Auto) 5.7, Eos % (Auto) 1.9, Baso % (Auto) 0.2, Gran # 4.55, Lymph # (Auto) 3.3, Morton # (Auto) 0.5, Eos # (Auto) 0.2, Baso # (Auto) 0.02 - RAD Interpretation Radiology Orders: 01/05/18 20:54 ANGIO CHEST PE PROTOCOL [CT] Stat DUPLEX LOWER EXTRM VEIN RIGHT [US] Stat 10/16/18 20:55 CHEST ONE VIEW [RAD] Stat - Medication Orders Current Medication Orders: Discontinued Medications Ketorolac Tromethamine (Toradol) 30 mg IVP STAT STA Stop: 01/06/18 01:23 Last Admin: 01/06/18 02:14 Dose: 30 mg MAR Pain Assessment Document 01/06/18 02:14 OCS (Rec: 01/06/18 02:14 OCS [id number]) Pain Reassessment Is this a pain reassessment? Yes Sleep Is patient sleeping during reassessment? No Presence of Pain Presence of Pain Yes Pain Scale Used Protocol: [facility] Pain Scale Used Numeric Location Left, Right or Bilateral Right Pain Location Body Site Leg Description Description Constant Intensity of Pain at present 8 Aggravating Factors ADL's IVP Administration Document 01/06/18 02:14 OCS (Rec: 01/06/18 02:14 OCS [id number]) Charges for Administration # of IVP Administrations 1 Morphine Sulfate (Morphine) 2 mg IVP STAT STA Stop: 01/05/18 20:58 Last Admin: 01/05/18 21:53 Dose: 2 mg MAR Pain Assessment Document 01/05/18 21:53 LA (Rec: 01/05/18 21:54 [email or web address] Pain Reassessment Is this a pain reassessment? No Sleep Is patient sleeping during reassessment? No Presence of Pain Presence of Pain Yes Pain Scale Used Protocol: [facility] Pain Scale Used Numeric Location Left, Right or Bilateral Right Pain Location Body Site Leg Description Intensity of Pain at present 10 IVP Administration Document 01/05/18 21:53 LA (Rec: 01/05/18 21:54 LA [employer]) Charges for Administration # of IVP Administrations 1 Re-Assess: MAR Pain Assessment Document 01/05/18 22:53 LA (Rec: 01/05/18 23:10 LA [employer]) Pain Reassessment Is this a pain reassessment? Yes Sleep Is patient sleeping during reassessment? Yes <Shubham Giang - Last Filed: 01/07/18 06:10> - PA / SUPERVISOR VENEER / Resident Statement MD/DO has reviewed & agrees with the documentation as recorded. - Scribe Statement The provider has reviewed the documentation as recorded by the Scribe Peter Navarro Provider Scribe Attestation: All medical record entries made by the Scribe were at my direction and personally dictated by me. I have reviewed the chart and agree that the record accurately reflects my personal performance of the history, physical exam, medical decision making, and the department course for this patient. I have also personally directed, reviewed, and agree with the discharge instructions and disposition. <Denae Florentino PA-C - Last Filed: 01/06/18 16:38> Disposition/Present on Arrival - Present on Arrival Any Indicators Present on Arrival: No History of DVT/PE: No History of Uncontrolled Diabetes: No Urinary Catheter: No History of Decub. Ulcer: No History Surgical Site Infection Following: None - Disposition Have Diagnosis and Disposition been Completed?: Yes Disposition Time: 01:20 Patient Plan: Discharge <Denae Florentino PA-C - Last Filed: 01/06/18 16:38> <Shubham Giang - Last Filed: 01/07/18 06:10> - Disposition Diagnosis: Back pain, Right leg pain Disposition: HOME/ ROUTINE Condition: STABLE Discharge Instructions (ExitCare): Upper Back Pain (DC), Muscle and Bone Pain (DC) Additional Instructions: Thank you for letting us take care of you today. You were treated for back pain, R leg pain. The emergency medical care you received today was directed at your acute symptoms. If you were prescribed any medication, please fill it and take as directed. It may take several days for your symptoms to resolve. Return to the Emergency Department if your symptoms worsen, do not improve, or if you have any other problems. Please contact your doctor in 2 days for re-evaluation and follow up. Bring any paperwork you were given at discharge with you along with any medications you are taking to your follow up visit. Our treatment cannot replace ongoing medical care by a primary care provider (PCP) outside of the emergency department. Thank you for allowing the [facility] team to be part of your care today. If you had an X-Ray : A Radiologist will review the ED reading if any change in treatment is needed we will contact you. Prescriptions: RX: Naproxen 500 mg PO BID PRN #20 tablet PRN Reason: Pain, Moderate (4-7) Referrals: Rachel Tuttle MD [Primary Care Provider] - Follow up with primary Forms: [employer] (Kazakh), WORK NOTE
[2018-01-05 22:08] LABS: PARTIAL THROMBOPLASTIN TIME 27.6 Seconds (25.1-36.5); PROTHROMBIN TIME 11.4 SECONDS (9.4-12.5)
[2018-01-05 22:09] LABS: ALB/GLOB RATIO 1.2 (1.1-1.8); ALBUMIN 4.3 g/dL (3.0-4.8); ALT/SGPT 35 U/L (7-56); AST/SGOT 31 U/L (14-36); BLOOD UREA NITROGEN 10 mg/dL (7-21); CALCIUM 9.4 mg/dL (8.4-10.5); GFR NON-AFRICAN AMERICAN > 60
[2018-01-05] MEDS ORDERED: Iodixanol 320 MG/ML 100 ML BOTTLE IV ONE (22:46)
[2018-01-06 02:25] VITALS: BP 104/62; PULSE 90; O2SAT 99
--- NOTE | 2018-01-06 08:29 | US ---
PROCEDURE: Right lower extremity venous US HISTORY: Leg pain and swelling. Evaluate for DVT. PHYSICIAN(S): Juan Alberto Rogel M.D. TECHNIQUE: Duplex sonography and color-flow Doppler with graded compression were used to evaluate the deep venous system of the right lower extremity. FINDINGS: The visualized deep venous system of the right lower extremity is sonographically normal and compressible. Normal waveforms and augmentation are seen. There is no sonographic evidence for deep venous thrombosis in the visualized segments of the right lower extremity. IMPRESSION: 1. No sonographic evidence for deep venous thrombosis in the visualized segments of the right lower extremity.
--- NOTE | 2018-01-06 08:48 | CT ---
Date of service: 01/05/2018 PROCEDURE: CT Chest with contrast (Pulmonary Angiogram) HISTORY: back pain, h/o pe COMPARISON: 06/09/2017 CT pulmonary angiogram. TECHNIQUE: Axial computed tomography images were obtained of the chest in the pulmonary arterial phase of enhancement. Coronal and sagittal reformatted images were created and reviewed. Intravenous contrast dose: 80 cc Visipaque 320. Mean Hounsfield value in the main pulmonary artery: 251.28 Radiation dose: Total exam DLP = 454.03 mGy-cm. This CT exam was performed using one or more of the following dose reduction techniques: Automated exposure control, adjustment of the mA and/or kV according to patient size, and/or use of iterative reconstruction technique. FINDINGS: PULMONARY ARTERIES: Unremarkable. No pulmonary embolism. AORTA: No acute findings. No thoracic aortic aneurysm. LUNGS: Unremarkable. No nodule, mass or pulmonary consolidation. PLEURAL SPACES: Unremarkable. No effusion or pneumothorax. HEART: Unremarkable. No cardiomegaly. No significant pericardial effusion. LYMPH NODES: No lymphadenopathy. BONES, CHEST WALL: Unremarkable. No fracture or destructive lesion OTHER FINDINGS: Unremarkable. IMPRESSION: Unremarkable CT pulmonary angiogram. No pulmonary embolus.No significant interval change compared to the prior examination(s). Concordant results (preliminary interpretation) provided by [facility]. Procedure Completed: 23:39. Preliminary Report: Dictated and Authenticated: 00:35 Final Interpretation: 08:44. January 05, 2018
--- NOTE | 2018-01-06 10:07 | RAD ---
Date of service: 01/05/2018 PROCEDURE: CHEST RADIOGRAPH, 1 VIEW HISTORY: back pain COMPARISON: None available. FINDINGS: LUNGS: Clear. PLEURA: No pneumothorax or pleural fluid seen. CARDIOVASCULAR: Normal. OSSEOUS STRUCTURES: No significant abnormalities. VISUALIZED UPPER ABDOMEN: Normal. OTHER FINDINGS: None. IMPRESSION: No active disease.
--- NOTE | 2018-01-06 11:44 | CARD ---
APPROVED REPORT Date of service: 01/06/2018 EKG Measurement Heart [id number] <Conclusion> Normal sinus rhythm Normal ECG
== END 2018-01-06 02:15 | disposition home or self-care (01) ==
LOC: ED 19:23
DX: M79.604 Pain in right leg (principal); M54.9 Dorsalgia, unspecified; D68.2 Hereditary deficiency of other clotting factors; D68.59 Other primary thrombophilia; Z86.711 Personal history of pulmonary embolism; Z87.891 Personal history of nicotine dependence
CPT/HCPCS: 71045; 71275; 80053; 83735; 85025; 85378; 85610; 85730; 93005; 93971; 96374; 99284; J1885; J2270; Q9967

== ENCOUNTER 2018-04-06 11:09 | Emergency (ER) | payer OTHER ==
[2018-04-06 11:30] VITALS: RESP 18; BMI 32.5
--- NOTE | 2018-04-06 12:03 | ED PDOC ---
Arrival/HPI - General Chief Complaint: Back Pain Time Seen by Provider: 04/06/18 11:24 Historian: Patient - History of Present Illness Narrative History of Present Illness (Text): 04/06/18 12:03 A 32 year old female, whose past medical history includes migraines, pulmonary embolism, back pain, blood clots, presents to the emergency department complaining of lower back since last thursday. Patient reports back pain is radiating to her right leg and feels numbness. Patient notes experiencing nausea, diarrhea, and increased urinary frequency. Patient reports she has previously had a signifcant blood clot to her lungs, received treatment, and has not been on blood thinners since. Patient notes she has seen a specialist for her back and was told her lower back pain is back spasms. Patient denies any shortness of breath, chest pain, vomiting, neck pain, headache, dizziness, or any other complaints. 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 - Integumentary Hx Dermatological Disorder: No - Musculoskeletal/Rheumatological Hx Musculoskeletal Disorders: No - Gastrointestinal Hx Gastrointestinal Disorders: No - Genitourinary/Gynecological Hx Genitourinary Disorders: No - Psychiatric Hx Psychophysiologic Disorder: No Hx Substance Use: No - Surgical History Hx Orthopedic Surgery: Yes (l knee acl) Other/Comment: L knee ACL - Anesthesia Hx Anesthesia: Yes Hx Anesthesia Reactions: No Hx Malignant Hyperthermia: No Family/Social History - Physician Review Nursing Documentation Reviewed: Yes Family/Social History: No Known Family HX Smoking Status: Current Some Days Smoker Hx Alcohol Use: No Hx Substance Use: No Allergies/Home Meds Allergies/Adverse Reactions: Allergies No Known Allergies Allergy (Verified 04/06/18 11:31) Review of Systems - Physician Review All systems were reviewed & negative as marked: Yes - Review of Systems Respiratory: absent: SOB Cardiovascular: absent: Chest Pain Gastrointestinal: Diarrhea, Nausea. absent: Vomiting Genitourinary Female: Frequency (increased urinary frequency) Musculoskeletal: Back Pain (lower back pain). absent: Neck Pain Neurological: Other (numbness to the right leg). absent: Headache, Dizziness Physical Exam - Physical Exam Narrative Physical Exam (Text): 04/06/18 12:03 Gen: VS reviewed, alert, well developed, well nourished, nontoxic, mild distress. ENT: normal pharynx. Eye: EOMI, PERRL. Neck: no JVD, supple, no adenopathy. CV: regular rate, regular rhythm, no rubs, no murmur, no gallops, S1, S2, pulses equal and strong. Pulm: no distress, clear to auscultation, no wheeze, no rhonchi, breath sounds equal, no rales. Abd: soft, nontender, no guarding, no rebound, no rigidity, normal bowel sounds. Ext: no edema. Skin: good color, no rash, no cyanosis. Psych: responds appropriately to questions, normal affect. Neuro: oriented x 3, CN2-12 intact grossly, diminished sensations in right leg, 5 out of 5 motor movement in bilateral lower extremities. Vital Signs Reviewed: Yes Vital Signs Temp Pulse Resp BP Pulse Ox 04/06/18 11:23 98.3 F 87 18 135/82 98 Temperature: Afebrile Blood Pressure: Normal Pulse: Regular Respiratory Rate: Normal Appearance: Positive for: Well-Appearing, Non-Toxic Pain Distress: Moderate Mental Status: Positive for: Alert and Oriented X 3 Medical Decision Making ED Course and Treatment: 04/06/18 12:03 Impression: 32 year old female presenting to the emergency department complaining of lower back pain. Plan: -- MRI of Spinal Canal Lumbar without contrast -- Tylenol -- Flexeril -- Toradol -- X-ray of lumbar spine with OBL -- Reassess and disposition Prior Visits: Notes and results from previous visits were reviewed. Progress Notes: 04/06/18 15:19 patient seen for low back pain with radicular symptoms with paresthesia. no weakness, no saddle anesthesia. MRI was done to rule out cord compression. pain controlled and patient stable for dc. patient encouraged to follow up with director of elementary education regarding her prothrombotic hx and hx pe. patient understands and is agreeable. - RAD Interpretation Narrative RAD Interpretations (Text): 04/06/18 14:46 Procedure: MRI of Spinal Canal Lumbar without contrast Dictator: Gurjit Jimenez MD Impression: There is disc degeneration with a mild disc bulge and desiccation of the disc material at L5-S1. There is no central or foraminal stenosis. Typesetter Perforator Operator: Radiologist - Scribe Statement The provider has reviewed the documentation as recorded by the Scribe Martha Orellana All medical record entries made by the Scribe were at my direction and personally dictated by me. I have reviewed the chart and agree that the record accurately reflects my personal performance of the history, physical exam, medical decision making, and the department course for this patient. I have also personally directed, reviewed, and agree with the discharge instructions and disposition. Disposition/Present on Arrival - Present on Arrival Any Indicators Present on Arrival: No History of DVT/PE: No History of Uncontrolled Diabetes: No Urinary Catheter: No History of Decub. Ulcer: No History Surgical Site Infection Following: None - Disposition Have Diagnosis and Disposition been Completed?: Yes Diagnosis: Radiculopathy of lumbosacral region Disposition: HOME/ ROUTINE Disposition Time: 15:20 Patient Plan: Discharge Patient Problems: Current Active Problems Problem Status Onset Factor V Leiden Resolved Protein C deficiency Resolved Pulmonary embolism Resolved Condition: STABLE Discharge Instructions (ExitCare): Radiculopathy (DC) Additional Instructions: follow up with a medical policy specialist for further discussion of your MRI results. return for any new or worsening symptoms. follow up with a director of elementary education to discuss occasional caregiver treatment for the blood disorders. Prescriptions: Cyclobenzaprine [Flexeril] 5 mg PO TID #15 tab Ibuprofen [Motrin Tab] 600 mg PO QID #42 tab Prednisone [Deltasone] 20 mg PO DAILY 5 Days #14 tablet Referrals: Rachel Tuttle MD [Primary Care Provider] - Follow up with primary [facility] [Outside] - Follow up with primary Ibrahima Laws MD [Staff Provider] - Follow up with primary Delmar Salvador MD [Staff Provider] - Follow up with primary Forms: [employer] (Albanian), [employer] (Hebrew)
--- NOTE | 2018-04-06 14:34 | MRI ---
Date of service: 04/06/2018 PROCEDURE: MR LUMBAR SPINE WITHOUT CONTRAST HISTORY: radicular pain with new numbness COMPARISON: None available. TECHNIQUE: Multiecho multiplanar sequences were performed through the lumbar spine without the use of intravenous contrast. FINDINGS: Normal lumbar lordosis. Vertebral body heights are preserved. Marrow signal unremarkable. Conus medullaris unremarkable at the level of L1 Paraspinal soft tissues are unremarkable. T12-L1: No disc herniation, spinal canal stenosis or neural foraminal narrowing. L1-2: No disc herniation, spinal canal stenosis or neural foraminal narrowing. L2-3: No disc herniation, spinal canal stenosis or neural foraminal narrowing. L3-4: No disc herniation, spinal canal stenosis or neural foraminal narrowing. L4-5: No disc herniation, spinal canal stenosis or neural foraminal narrowing. L5-S1: There is disc degeneration with a mild disc bulge and desiccation of the disc material at L5-S1. There is no central or foraminal stenosis OTHER FINDINGS: None. IMPRESSION: There is disc degeneration with a mild disc bulge and desiccation of the disc material at L5-S1. There is no central or foraminal stenosis
--- NOTE | 2018-04-06 14:54 | RAD ---
Date of service: 04/06/2018 PROCEDURE: Radiographs of the Lumbar Spine. HISTORY: radicular pain COMPARISON: No prior. FINDINGS: BONES: Normal alignment. No listhesis. No fracture. DISC SPACES: Unremarkable. OTHER FINDINGS: None. IMPRESSION: Unremarkable radiographs of the lumbar spine.
[2018-04-06 15:31] VITALS: BP 107/71; PULSE 75; TEMP 98.2; O2SAT 100
== END 2018-04-06 15:55 | disposition home or self-care (01) ==
LOC: ED 11:09
DX: M54.17 Radiculopathy, lumbosacral region (principal)
CPT/HCPCS: 72110; 72148; 81025; 96372; 99283; J1885

== ENCOUNTER 2018-06-18 17:06 | Inpatient (IN) | payer OTHER ==
[2018-06-18 17:10] VITALS: BMI 33.2
--- NOTE | 2018-06-18 17:32 | ED PDOC ---
Arrival/HPI - General Chief Complaint: Headache Time Seen by Provider: 06/18/18 17:11 Historian: Patient - History of Present Illness Narrative History of Present Illness (Text): 06/18/18 17:27 A 32 year old female, whose past medical history includes migraines, pulmonary embolism, back pain, blood clots, presents to the emergency department complaining of left sided numbness and a headache since earlier today. Patient reports on Thursday she experienced a numbing and tingling sensation to her left foot that traveled up the left side of her body to her left church and she had a left sided headache with 3 vomiting episodes. Patient reports the same symptoms occurred again during her lunch earlier today at 1 pm, however she notes that today she feels a right sided throbbing headache instead of the left side. Patient also notes she feels the numbness when walking, nausea, and has had 2 vomiting episodes today. Patient states she has taken a baby aspirin for the pain today. Patient denies any fever, chills, shortness of breath, chest pain, dizziness, or any other complaints. 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 - Integumentary Hx Dermatological Disorder: No - Musculoskeletal/Rheumatological Hx Musculoskeletal Disorders: No - Gastrointestinal Hx Gastrointestinal Disorders: No - Genitourinary/Gynecological Hx Genitourinary Disorders: No - Psychiatric Hx Psychophysiologic Disorder: No Hx Substance Use: No - Surgical History Hx Orthopedic Surgery: Yes (l knee acl) Other/Comment: L knee ACL - Anesthesia Hx Anesthesia: Yes Hx Anesthesia Reactions: No Hx Malignant Hyperthermia: No Family/Social History - Physician Review Nursing Documentation Reviewed: Yes Family/Social History: No Known Family HX Smoking Status: Light Smoker < 10 Cigarettes Daily Hx Alcohol Use: No Hx Substance Use: No Allergies/Home Meds Allergies/Adverse Reactions: Allergies No Known Allergies Allergy (Verified 06/18/18 17:11) Home Medications: Home Meds Medication Instructions Recorded Confirmed Aspirin [Aspirin Chewable] 1 tab PO DAILY 06/18/18 06/18/18 Review of Systems - Physician Review All systems were reviewed & negative as marked: Yes - Review of Systems Respiratory: absent: SOB Neurological: Headache (throbbing headache), Other (numbness to left side of body). absent: Dizziness Physical Exam - Physical Exam Narrative Physical Exam (Text): 06/18/18 17:27 Gen: VS reviewed, alert, well developed, well nourished, nontoxic, mild distress. ENT: normal pharynx. Eye: EOMI, PERRL. Neck: no JVD, supple, no adenopathy. CV: regular rate, regular rhythm, no rubs, no murmur, no gallops, S1, S2, pulses equal and strong. Pulm: no distress, clear to auscultation, no wheeze, no rhonchi, breath sounds equal, no rales. Abd: soft, nontender, no guarding, no rebound, no rigidity, normal bowel sounds. Ext: no edema. Skin: good color, no rash, no cyanosis. Psych: responds appropriately to questions, normal affect. Neuro: oriented x 3, CN2-12 intact grossly, motor intact, sensation diminished sensation in the left dorsum foot, normal finger to nose, normal heel to vazquez, normal gait 06/21/18 08:56 Vital Signs Reviewed: Yes Vital Signs Temp Pulse Resp BP Pulse Ox 06/18/18 17:16 97.9 F 82 18 105/73 98 Temperature: Afebrile Blood Pressure: Normal Pulse: Regular Respiratory Rate: Normal Medical Decision Making ED Course and Treatment: 06/18/18 17:27 Impression: 32 year old female presenting to the emergency department complaining of left sided numbness. Plan: -- Type and screen -- CT of head and neck -- EKG -- Labs -- Stroke team consult -- Chest X-ray -- MRI of brain without contrast -- MRI of head without contrast -- MRI of neck without contrast -- IV fluids -- Reassess and disposition Prior Visits: Notes and results from previous visits were reviewed. Progress Notes: 06/18/18 17:27 STROKE CODE called. 06/18/18 17:[address] Cole, who reports CT head result is negative and states he will help facilitate MRV studies with avionics repair technician. 06/18/18 17:[address] braun, agrees that the patient is not a candidate for thrombolysis, recommends tx for headache as medications ordered, agrees to proceed workup for possible CVT, would like EEG ddx including but not limited CVT, comlex migraine,seizure 06/18/18 18:19 first page made out to the hospitalist via the service car operator (requested by myself) 06/18/18 18:[address] adair, accepts case to the hospitalist services. patient to be admitted for intermittent and transient symptoms for CVA, admit for comprehensive workup. 06/18/18 20:[address] eli and will see the patient in con sultation for icu disposition. 06/18/18 19:30 patient reports improvement in the intensity of her right sided headache - Critical Care Critical Care Minutes: 60 minutes (critical care fo critical illness, complex medical decision making) - EKG Interpretation EKG Interpretation (Text): 06/18/18 18:08 EKG: Ordered, reviewed, and independently interpreted the EKG. Rate : 80 BPM Rhythm : NSR Interpretation : Normal intervals. Interpreted by ED Physician: Yes NIHSS Scale ([place]) Time Performed: 18:30 - How Severe is the Stoke Baseline Level of Consciousness: 0=Alert LOC to Questions: 0=Both comments correct LOC to commands: 0=Obeys both correctly Best Gaze: 0=Normal Visual: 0=No visual loss Facial: 0=Normal Motor Arm - Left: 0=No drift Motor Arm - Right: 0=No drift Motor Leg - Left: 0=No drift Motor Leg - Right: 0=No drift Limb Ataxia: 0=Absent Sensory: 1=Mild to moderate loss Best Language: 0=No aphasia Dysarthia: 0=Normal articulation Extinction & Inattention (Neglect): 0=Normal, no object Score: 1 Risk Level: Minor Stroke Risk rTPA Inclusion/Exclusion - Refusal of Treatment Patient Refused Treatment: No - Inclusion Criteria for Altepase Patient is 18 years or Older: Yes The Clinical Diagnosis of Ischemic Stroke That is Causing a Potentially Disabling Neurological Deficit: Yes Time of Onset is Well Established to be Less Than 270 Minute Before Treatment Would Begin: No Risk/Benefit Discussed With Patient/Family Member Present: Yes - Scribe Statement The provider has reviewed the documentation as recorded by the Devaniblisa Orellana All medical record entries made by the Scribe were at my direction and personally dictated by me. I have reviewed the chart and agree that the record accurately reflects my personal performance of the history, physical exam, medic al decision making, and the department course for this patient. I have also personally directed, reviewed, and agree with the discharge instructions and disposition. Disposition/Present on Arrival - Present on Arrival Any Indicators Present on Arrival: No History of DVT/PE: No History of Uncontrolled Diabetes: No Urinary Catheter: No History of Decub. Ulcer: No History Surgical Site Infection Following: None - Disposition Have Diagnosis and Disposition been Completed?: Yes Diagnosis: Numbness, Headache, Factor V Leiden Disposition: HOSPITALIZED Disposition Time: 08:54 Patient Plan: Admission Condition: GOOD
[2018-06-18] MEDS ORDERED: Iodixanol 320 MG/ML 100 ML BOTTLE IV ONE (17:44)
[2018-06-18 17:48] LABS: BASO # 0.03 K/mm3 (0.0-2.0); BASO % 0.4 % (0.0-3.0); EOS # 0.1 (0.0-0.7); EOS % 1.6 % (1.5-5.0); LYMPH # 2.9 (1.2-3.4); LYMPH % 36.5 % (22.0-35.0); MEAN CELL VOLUME 86.3 fl (80.0-105.0); MEAN CORPUSCULAR HEMOGLOBIN 29.6 pg (25.0-35.0); MEAN CORPUSCULAR HGB CONC 34.3 g/dl (31.0-37.0); MEAN PLATELET VOLUME 9.1 fl (7.0-11.0); MONO # 0.5 (0.1-0.6); MONO % 6.7 % (1.0-6.0); RBC 4.39 10^6/uL (3.5-6.1); RED CELL DISTRIBUTION WIDTH 12.2 % (11.5-14.5)
--- NOTE | 2018-06-18 17:51 | CT ---
Date of service: 06/18/2018 PROCEDURE: CT HEAD WITHOUT CONTRAST. HISTORY: Code Stroke COMPARISON: None available. TECHNIQUE: Axial computed tomography images were obtained through the head/brain without intravenous contrast. Supplemental Coronal and Sagittal projections created and reviewed. Radiation dose: Total exam DLP = 969.82 mGy-cm. This CT exam was performed using one or more of the following dose reduction techniques: Automated exposure control, adjustment of the mA and/or kV according to patient size, and/or use of iterative reconstruction technique. FINDINGS: HEMORRHAGE: No intracranial hemorrhage. BRAIN: No mass effect or edema. No atrophy or chronic microvascular ischemic changes. VENTRICLES: Unremarkable. No hydrocephalus. CALVARIUM: Unremarkable. PARANASAL SINUSES: Unremarkable as visualized. No significant inflammatory changes. MASTOID AIR CELLS: Unremarkable as visualized. No inflammatory changes. OTHER FINDINGS: None. IMPRESSION: No acute intracranial abnormalities. No significant findings to account for the clinical presentation. Code stroke protocol: Study completed 17:38 Radiologist notified 17:42 Results conveyed verbally at 17:46. Interpretation finalized and available for review 17:47.
[2018-06-18 17:52] LABS: INR 1.12; PARTIAL THROMBOPLASTIN TIME 31.3 Seconds (26.9-38.3); PROTHROMBIN TIME 12.4 SECONDS (9.4-12.5)
[2018-06-18 17:54] LABS: ALBUMIN 4.1 g/dL (3.0-4.8); ALT/SGPT 22 U/L (7-56); AST/SGOT 28 U/L (14-36); BLOOD UREA NITROGEN 11 mg/dL (7-21); CALCIUM 9.3 mg/dL (8.4-10.5); GFR NON-AFRICAN AMERICAN > 60; HDL CHOLESTEROL 37 mg/dL (29-60)
[2018-06-18] MEDS ORDERED: Valproate 500 MG in Sodium Chloride 0.9% 100 ML IVPB ONE (17:54)
[2018-06-18] MEDS ORDERED: Magnesium Sulfate 2 gm/50 ml 2 GM/50 ML BAG IVPB ONE (17:54)
[2018-06-18] MEDS: Sodium Chloride 0.9% 1,000 ML IV SCH (17:58)
[2018-06-18 18:05] LABS: LDL CHOLESTEROL 126 mg/dL (0-129)
[2018-06-18 18:07] LABS: TROPONIN I < 0.01 ng/mL
--- NOTE | 2018-06-18 18:46 | RAD ---
Date of service: 06/18/2018 HISTORY: Code Stroke COMPARISON: No prior. FINDINGS: LUNGS: No active pulmonary disease. PLEURA: No significant pleural effusion identified, no pneumothorax apparent. CARDIOVASCULAR: No atherosclerotic calcification present Normal. OSSEOUS STRUCTURES: No significant abnormalities. VISUALIZED UPPER ABDOMEN: Normal. OTHER FINDINGS: None. IMPRESSION: No active disease.
--- NOTE | 2018-06-18 20:16 | CP.PCM.HP ---
<Brando Bear - Last Filed: 06/18/18 21:23> History of Present Illness - History of Present Illness History of Present Illness: Brando Bear DO PGY1 - Internal Medicine Chief Cook - Hospitalist H&P CC: RUE/RLE Neuropathy Patient is a 32F w/ a PMH of Factor V Leiden, Protein S deficiency, Migraines, Presenting w/ complaints of left sided upper and lower extremity neuropathy. Patient reported first episode onset 3 days prior to admission, Patient reported sudden onset in the Left toes with progression to her leg, thigh, left arm/hand, left head/neck. Patient reports episodes are associated w/ R sided headache, blurry vision, and N/V. Patient reported symptoms recurred hours prior to arr ival. At time of evaluation in ED patient is not complaining of symptoms. She denied any associated weakness during episodes. During evaluation patient was complaining of on/off headaches w/ R eye blurry vision; Headaches located in right temporal region, sharp in nature. Remainder 12 system ROS at time of evaluation was otherwise negative. Heme-Onc: Dr. Kip Bear PMD: Rachel Tuttle PMH: as above PSH: acl repair Home Rx: ASA Allergies: NKDA Social: Smoking 3 cigarettes/day x 10 year; No EtOH, Denies illicit drug use Present on Admission - Present on Admission Any Indicators Present on Admission: No Review of Systems - Review of Systems All systems: reviewed and no additional remarkable complaints except Review of Systems: as per HPI Past Patient History - Infectious Disease Hx of Infectious Diseases: None - Past Social History Smoking Status: Light Smoker < 10 Cigarettes Daily - CARDIAC Hx Cardiac Disorders: No - PULMONARY Hx Respiratory Disorders: Yes Hx Pulmonary Embolism: Yes - NEUROLOGICAL Hx Neurological Disorder: Yes Hx Migraine: Yes - HEENT Hx HEENT Problems: No - RENAL Hx Chronic Kidney Disease: No - ENDOCRINE/METABOLIC Hx Endocrine Disorders: No - HEMATOLOGICAL/ONCOLOGICAL Hx Blood Disorders: Yes 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 - INTEGUMENTARY Hx Dermatological Problems: No - MUSCULOSKELETAL/RHEUMATOLOGICAL Hx Musculoskeletal Disorders: No - GASTROINTESTINAL Hx Gastrointestinal Disorders: No - GENITOURINARY/GYNECOLOGICAL Hx Genitourinary Disorders: No - PSYCHIATRIC Hx Psychophysiologic Disorder: No Hx Substance Use: No - SURGICAL HISTORY Hx Orthopedic Surgery: Yes (l knee acl) Other/Comment: L knee ACL - ANESTHESIA Hx Anesthesia: Yes Hx Anesthesia Reactions: No Hx Malignant Hyperthermia: No Meds Allergies/Adverse Reactions: Allergies Allergy/AdvReac Type Severity Reaction Status Date / Time No Known Allergies Allergy Verified 06/18/18 17:11 Physical Exam - Head Exam Head Exam: ATRAUMATIC, NORMOCEPHALIC - Eye Exam Eye Exam: EOMI, Normal appearance, PERRL. absent: Scleral icterus - ENT Exam ENT Exam: Mucous Membranes Moist, Normal Exam - Respiratory Exam Respiratory Exam: Clear to Auscultation Bilateral, NORMAL BREATHING PATTERN - Cardiovascular Exam Cardiovascular Exam: REGULAR RHYTHM, RRR. absent: Systolic Murmur - GI/Abdominal Exam GI & Abdominal Exam: Soft. absent: Tenderness - Neurological Exam Neurological exam: Alert, CN II-XII Intact, Oriented x3 - Expanded Neurological Exam Expanded Patient oriented to: person, place, time Neuro motor strength exam: Left Upper Extremity: 5, Right Upper Extremity: 5, Left Lower Extremity: 5, Right Lower Extremity: 5 Results - Vital Signs Recent Vital Signs: Last Vital Signs Temp 97.9 F 06/18/18 17:16 Pulse 84 06/18/18 17:58 Resp 18 06/18/18 17:58 BP 119/75 06/18/18 17:58 Pulse Ox 100 06/18/18 17:58 - Labs Result Diagrams: 06/18/18 17:34 06/18/18 17:34 Labs: Laboratory Results - last 24 hr 06/18/18 06/18/18 06/18/18 17:34 17:34 17:34 WBC 8.0 RBC 4.39 Hgb 13.0 Hct 37.9 MCV 86.3 MCH 29.6 MCHC 34.3 RDW 12.2 Plt Count 253 MPV 9.1 Neut % (Auto) 54.8 Lymph % (Auto) 36.5 H [place] % (Auto) 6.7 H Eos % (Auto) 1.6 Baso % (Auto) 0.4 Lymph # (Auto) 2.9 [place] # (Auto) 0.5 Eos # (Auto) 0.1 Baso # (Auto) 0.03 Absolute Neuts (auto) 4.36 PT 12.4 INR 1.12 APTT 31.3 Sodium 139 Potassium 3.6 Chloride 103 Carbon Dioxide 26 Anion Gap 13 BUN 11 Creatinine 0.7 Est GFR ( Amer) > 60 Est GFR (Non-Af Amer) > 60 Random Glucose 107 Calcium 9.3 Total Bilirubin 0.2 AST 28 ALT 22 Alkaline Phosphatase 107 Troponin I < 0.01 Total Protein 8.1 Albumin 4.1 Globulin 4.0 Albumin/Globulin Ratio 1.0 L Triglycerides 191 H Cholesterol 185 LDL Cholesterol Direct 126 HDL Cholesterol 37 Blood Type BBK History Checked 06/18/18 18:05 WBC RBC Hgb Hct MCV MCH MCHC RDW Plt Count MPV Neut % (Auto) Lymph % (Auto) [place] % (Auto) Eos % (Auto) Baso % (Auto) Lymph # (Auto) [place] # (Auto) Eos # (Auto) Baso # (Auto) Absolute Neuts (auto) PT INR APTT Sodium Potassium Chloride Carbon Dioxide Anion Gap BUN Creatinine Est GFR ( Amer) Est GFR (Non-Af Amer) Random Glucose Calcium Total Bilirubin AST ALT Alkaline Phosphatase Troponin I Total Protein Albumin Globulin Albumin/Globulin Ratio Triglycerides Cholesterol LDL Cholesterol Direct HDL Cholesterol Blood Type O POSITIVE BBK History Checked No verified bt Assessment & Plan - Assessment and Plan (Free Text) Assessment: Left sided upper and lower extremity neuropathy CVA rule out vs peripheral neuropathy vs Migraine Prior Hx Factor V Leiden - high risk for thromboembolism 06/18 - CT Head Code Stroke - Negative for acute intracranial abnormalities CTA head and neck pending MRA/ MRV head and neck pending Loaded 300mg Plavix in ED Given 10mg Decadron in ED 2gm Mag sulfate in ED Neurocheck Q4H Aspirin Statin PT/OT Monitor on telemtry Neurology consulted Lower extremity neuropathy - Lumbosacral XR - Eval for anatomic abnormality Nausea/Vomiting + Headache + Visual Changes Most likely Migraine Migraine Cocktail as needed - Benadryl, Zofran, Toradol Can consider Mag Sulfate IVPB as needed DVT PPX: Lovenox Patient was seen, examined, and discussed w/ attending physician Dr. Alfa Bear DO PGY1 - Internal Medicine Chief Cook - Hospitalist H&P - Date & Time Date: 06/18/18 Time: 21:41 <Pradeep Grimm - Last Filed: 06/18/18 21:55> Results - Vital Signs Recent Vital Signs: Last Vital Signs Temp 97.9 F 06/18/18 17:16 Pulse 87 06/18/18 20:43 Resp 17 06/18/18 20:43 BP 114/72 06/18/18 20:43 Pulse Ox 100 06/18/18 20:43 - Labs Result Diagrams: 06/18/18 17:34 06/18/18 17:34 Labs: Laboratory Results - last 24 hr 06/18/18 06/18/18 06/18/18 17:34 17:34 17:34 WBC 8.0 RBC 4.39 Hgb 13.0 Hct 37.9 MCV 86.3 MCH 29.6 MCHC 34.3 RDW 12.2 Plt Count 253 MPV 9.1 Neut % (Auto) 54.8 Lymph % (Auto) 36.5 H [place] % (Auto) 6.7 H Eos % (Auto) 1.6 Baso % (Auto) 0.4 Lymph # (Auto) 2.9 [place] # (Auto) 0.5 Eos # (Auto) 0.1 Baso # (Auto) 0.03 Absolute Neuts (auto) 4.36 PT 12.4 INR 1.12 APTT 31.3 Sodium 139 Potassium 3.6 Chloride 103 Carbon Dioxide 26 Anion Gap 13 BUN 11 Creatinine 0.7 Est GFR ( Amer) > 60 Est GFR (Non-Af Amer) > 60 Random Glucose 107 Hemoglobin A1c Calcium 9.3 Total Bilirubin 0.2 AST 28 ALT 22 Alkaline Phosphatase 107 Troponin I < 0.01 Total Protein 8.1 Albumin 4.1 Globulin 4.0 Albumin/Globulin Ratio 1.0 L Triglycerides 191 H Cholesterol 185 LDL Cholesterol Direct 126 HDL Cholesterol 37 Blood Type Blood Type Confirm BBK History Checked 06/18/18 06/18/18 06/18/18 17:34 18:05 18:51 WBC RBC Hgb Hct MCV MCH MCHC RDW Plt Count MPV Neut % (Auto) Lymph % (Auto) [place] % (Auto) Eos % (Auto) Baso % (Auto) Lymph # (Auto) [place] # (Auto) Eos # (Auto) Baso # (Auto) Absolute Neuts (auto) PT INR APTT Sodium Potassium Chloride Carbon Dioxide Anion Gap BUN Creatinine Est GFR ( Amer) Est GFR (Non-Af Amer) Random Glucose Hemoglobin A1c 5.5 Calcium Total Bilirubin AST ALT Alkaline Phosphatase Troponin I Total Protein Albumin Globulin Albumin/Globulin Ratio Triglycerides Cholesterol LDL Cholesterol Direct HDL Cholesterol Blood Type O POSITIVE Blood Type Confirm O POSITIVE BBK History Checked No verified bt Attending/Attestation - Attestation I have personally seen and examined this patient.: Yes I have fully participated in the care of the patient.: Yes I have reviewed all pertinent clinical information: Yes Notes (Text): 06/18/18 21:51 Patient was seen when she was in bed # 14 in the ER. Medical record was reviewed. Agree with history, physical examination, assessment and plan. This 32 y o AA woman complained of left sided numbness starting from left foot going up to left side of face and head since Thursday, right sided headache. Has history of migraine, pulmonary embolism in 2011, back pain,obesity, radiculopathy, Factor V deficiency, protein s deficiency, smoker, seasonal allergies, sickle cell trait , gestational diabetes mellitus, family history of DM , breast cancer, clotting disorder, multiple organ cancer.
[2018-06-18] MEDS ORDERED: Gadodiamide 287 MG/ML VIAL (20ML) IV ONE (20:32)
--- NOTE | 2018-06-18 20:34 | CARD ---
APPROVED REPORT Date of service: 06/18/2018 EKG Measurement Heart [id number] <Conclusion> Normal sinus rhythm Normal ECG
[2018-06-19] MEDS: Sodium Chloride 0.9% 1,000 ML IV SCH ×2 (00:06→03:30)
--- NOTE | 2018-06-19 00:44 | CP.PCM.CON ---
<Kevan Culp - Last Filed: 06/19/18 00:52> History of Present Illness - History of Present Illness History of Present Illness: Kevan Culp PGY2 ICU Consult Note Patient is a 32F w/ a PMH of Factor V Leiden, Protein C & S deficiency, Migraines, Presenting w/ complaints of left sided upper and lower extremity neuropathy. Patient reported first episode onset 3 days prior to admission, Patient reported sudden onset in the Left toes with progression to her leg, t high, left arm/hand, left head/neck. Patient reports episodes are associated w/ R sided headache, blurry vision, and N/V. Patient reported symptoms recurred hours prior to arrival. At time of evaluation in ED patient is not complaining of symptoms. She denied any associated weakness during episodes. During evaluation patient was complaining of on/off headaches w/ R eye blurry vision; Headaches located in right temporal region, sharp in nature. Remainder 12 system ROS at time of evaluation was otherwise negative. Heme-Onc: Dr. Kip Bear PMD: Rachel Tuttle PMH: as above PSH: acl repair Meds: ASA Allergies: NKDA SHx: Smoking 3 cigarettes/day x 10 year; No EtOH, Denies illicit drug use FHx: non-contributory Past Patient History - Infectious Disease Hx of Infectious Diseases: None - Past Social History Smoking Status: Current Some Days Smoker - CARDIAC Hx Cardiac Disorders: No - PULMONARY Hx Respiratory Disorders: Yes - NEUROLOGICAL Hx Neurological Disorder: Yes Hx Migraine: Yes - HEENT Hx HEENT Problems: No - RENAL Hx Chronic Kidney Disease: No - ENDOCRINE/METABOLIC Hx Endocrine Disorders: No - HEMATOLOGICAL/ONCOLOGICAL Hx Blood Disorders: Yes 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 - INTEGUMENTARY Hx Dermatological Problems: No - MUSCULOSKELETAL/RHEUMATOLOGICAL Hx Musculoskeletal Disorders: No Hx Falls: No - GASTROINTESTINAL Hx Gastrointestinal Disorders: No - GENITOURINARY/GYNECOLOGICAL Hx Genitourinary Disorders: No - PSYCHIATRIC Hx Psychophysiologic Disorder: No Hx Substance Use: No - SURGICAL HISTORY Hx Orthopedic Surgery: Yes (l knee acl) Other/Comment: L knee ACL - ANESTHESIA Hx Anesthesia: Yes Hx Anesthesia Reactions: No Hx Malignant Hyperthermia: No Meds Allergies/Adverse Reactions: Allergies Allergy/AdvReac Type Severity Reaction Status Date / Time No Known Allergies Allergy Verified 06/18/18 17:11 - Medications Medications: Current Medications Aspirin (Ecotrin) 81 mg PO 0800 [facility] Atorvastatin Calcium (Lipitor) 80 mg PO DIN [facility] Last Admin: 06/19/18 00:06 Dose: 80 mg Diphenhydramine HCl (Benadryl) 10 mg IVP Q6H PRN PRN Reason: Headache Enoxaparin Sodium (Lovenox) 40 mg SC DAILY [facility]; Protocol Sodium Chloride (Sodium Chloride 0.9%) 1,000 mls @ 100 mls/hr IV .Q10H [facility] Last Admin: 06/19/18 00:06 Dose: 100 mls/hr Ketorolac Tromethamine (Toradol) 15 mg IVP Q6H PRN PRN Reason: Headache Ondansetron HCl (Zofran Inj) 4 mg IVP STAT PRN PRN Reason: Headache Pantoprazole Sodium (Protonix Ec Tab) 40 mg PO 0600 [facility] Physical Exam - Constitutional Appears: Well, Non-toxic, No Acute Distress - Head Exam Head Exam: ATRAUMATIC, NORMAL INSPECTION, NORMOCEPHALIC - Eye Exam Eye Exam: EOMI, Normal appearance, PERRL Pupil Exam: NORMAL ACCOMODATION, PERRL - ENT Exam ENT Exam: Mucous Membranes Moist, Normal Exam - Neck Exam Neck exam: Positive for: Normal Inspection - Respiratory Exam Respiratory Exam: Clear to Auscultation Bilateral, NORMAL BREATHING PATTERN - Cardiovascular Exam Cardiovascular Exam: REGULAR RHYTHM - GI/Abdominal Exam GI & Abdominal Exam: Normal Bowel Sounds, Soft. absent: Distended, Tenderness - Extremities Exam Extremities exam: Positive for: normal inspection, pedal pulses present. Ne gative for: calf tenderness, full ROM (left hip flexion limited compared to right) - Back Exam Back exam: NORMAL INSPECTION. absent: paraspinal tenderness - Neurological Exam Neurological exam: Alert, CN II-XII Intact, Oriented x3, Reflexes Normal Additional comments: no motor sensory deficits noted - Psychiatric Exam Psychiatric exam: Normal Affect, Normal Mood - Skin Skin Exam: Dry, Intact, Normal Color, Warm Results - Vital Signs Recent Vital Signs: Last Vital Signs Temp 97.9 F 06/18/18 17:16 Pulse 80 06/18/18 23:51 Resp 18 06/18/18 23:51 BP 114/72 06/18/18 21:35 Pulse Ox 100 06/18/18 21:35 - Labs Result Diagrams: 06/18/18 17:34 06/18/18 17:34 Labs: Laboratory Results - last 24 hr 06/18/18 06/18/18 06/18/18 17:34 17:34 17:34 WBC 8.0 RBC 4.39 Hgb 13.0 Hct 37.9 MCV 86.3 MCH 29.6 MCHC 34.3 RDW 12.2 Plt Count 253 MPV 9.1 Neut % (Auto) 54.8 Lymph % (Auto) 36.5 H [place] % (Auto) 6.7 H Eos % (Auto) 1.6 Baso % (Auto) 0.4 Lymph # (Auto) 2.9 [place] # (Auto) 0.5 Eos # (Auto) 0.1 Baso # (Auto) 0.03 Absolute Neuts (auto) 4.36 PT 12.4 INR 1.12 APTT 31.3 Sodium 139 Potassium 3.6 Chloride 103 Carbon Dioxide 26 Anion Gap 13 BUN 11 Creatinine 0.7 Est GFR ( Amer) > 60 Est GFR (Non-Af Amer) > 60 Random Glucose 107 Hemoglobin A1c Calcium 9.3 Total Bilirubin 0.2 AST 28 ALT 22 Alkaline Phosphatase 107 Troponin I < 0.01 Total Protein 8.1 Albumin 4.1 Globulin 4.0 Albumin/Globulin Ratio 1.0 L Triglycerides 191 H Cholesterol 185 LDL Cholesterol Direct 126 HDL Cholesterol 37 Blood Type Blood Type Confirm Antibody Screen Antibody Identification BBK History Checked 06/18/18 06/18/18 06/18/18 17:34 18:05 18:51 WBC RBC Hgb Hct MCV MCH MCHC RDW Plt Count MPV Neut % (Auto) Lymph % (Auto) [place] % (Auto) Eos % (Auto) Baso % (Auto) Lymph # (Auto) [place] # (Auto) Eos # (Auto) Baso # (Auto) Absolute Neuts (auto) PT INR APTT Sodium Potassium Chloride Carbon Dioxide Anion Gap BUN Creatinine Est GFR ( Amer) Est GFR (Non-Af Amer) Random Glucose Hemoglobin A1c 5.5 Calcium Total Bilirubin AST ALT Alkaline Phosphatase Troponin I Total Protein Albumin Globulin Albumin/Globulin Ratio Triglycerides Cholesterol LDL Cholesterol Direct HDL Cholesterol Blood Type O POSITIVE Blood Type Confirm O POSITIVE Antibody Screen Positive Antibody Identification Inconclusive Panel BBK History Checked No verified bt Assessment & Plan - Assessment and Plan (Free Text) Assessment: 32 year old female admitted for peripheral neuropathy vs CVA. Patient is hypercoagulable due to her underlying history. Plan: - patient does not meet ICU admission criteria - continue telemetry - would recommend LS XR to r/o spinal etiology - DVT ppx - PPI ppx - Neurology is consulted - continue mgmt per primary team Case discussed with Dr. Grimm <Pradeep Grimm - Last Filed: 06/19/18 01:40> Meds - Medications Medications: Current Medications Aspirin (Ecotrin) 81 mg PO 0800 [facility] Atorvastatin Calcium (Lipitor) 80 mg PO DIN [facility] Last Admin: 06/19/18 00:06 Dose: 80 mg Diphenhydramine HCl (Benadryl) 10 mg IVP Q6H PRN PRN Reason: Headache Enoxaparin Sodium (Lovenox) 40 mg SC DAILY [facility]; Protocol Sodium Chloride (Sodium Chloride 0.9%) 1,000 mls @ 100 mls/hr IV .Q10H [facility] Last Admin: 06/19/18 00:06 Dose: 100 mls/hr Ketorolac Tromethamine (Toradol) 15 mg IVP Q6H PRN PRN Reason: Headache Ondansetron HCl (Zofran Inj) 4 mg IVP STAT PRN PRN Reason: Headache Pantoprazole Sodium (Protonix Ec Tab) 40 mg PO 0600 [facility] Results - Vital Signs Recent Vital Signs: Last Vital Signs Temp 98.3 F 06/19/18 00:01 Pulse 83 06/19/18 00:01 Resp 18 06/19/18 00:01 BP 109/67 06/19/18 00:01 Pulse Ox 98 06/19/18 00:01 - Labs Result Diagrams: 06/18/18 17:34 06/18/18 17:34 Labs: Laboratory Results - last 24 hr 06/18/18 06/18/18 06/18/18 17:34 17:34 17:34 WBC 8.0 RBC 4.39 Hgb 13.0 Hct 37.9 MCV 86.3 MCH 29.6 MCHC 34.3 RDW 12.2 Plt Count 253 MPV 9.1 Neut % (Auto) 54.8 Lymph % (Auto) 36.5 H [place] % (Auto) 6.7 H Eos % (Auto) 1.6 Baso % (Auto) 0.4 Lymph # (Auto) 2.9 [place] # (Auto) 0.5 Eos # (Auto) 0.1 Baso # (Auto) 0.03 Absolute Neuts (auto) 4.36 PT 12.4 INR 1.12 APTT 31.3 Sodium 139 Potassium 3.6 Chloride 103 Carbon Dioxide 26 Anion Gap 13 BUN 11 Creatinine 0.7 Est GFR ( Amer) > 60 Est GFR (Non-Af Amer) > 60 Random Glucose 107 Hemoglobin A1c Calcium 9.3 Total Bilirubin 0.2 AST 28 ALT 22 Alkaline Phosphatase 107 Troponin I < 0.01 Total Protein 8.1 Albumin 4.1 Globulin 4.0 Albumin/Globulin Ratio 1.0 L Triglycerides 191 H Cholesterol 185 LDL Cholesterol Direct 126 HDL Cholesterol 37 Blood Type Blood Type Confirm Antibody Screen Antibody Identification BBK History Checked 06/18/18 06/18/18 06/18/18 17:34 18:05 18:51 WBC RBC Hgb Hct MCV MCH MCHC RDW Plt Count MPV Neut % (Auto) Lymph % (Auto) [place] % (Auto) Eos % (Auto) Baso % (Auto) Lymph # (Auto) [place] # (Auto) Eos # (Auto) Baso # (Auto) Absolute Neuts (auto) PT INR APTT Sodium Potassium Chloride Carbon Dioxide Anion Gap BUN Creatinine Est GFR ( Amer) Est GFR (Non-Af Amer) Random Glucose Hemoglobin A1c 5.5 Calcium Total Bilirubin AST ALT Alkaline Phosphatase Troponin I Total Protein Albumin Globulin Albumin/Globulin Ratio Triglycerides Cholesterol LDL Cholesterol Direct HDL Cholesterol Blood Type O POSITIVE Blood Type Confirm O POSITIVE Antibody Screen Positive Antibody Identification Inconclusive Panel BBK History Checked No verified bt Attending/Attestation - Attestation I have personally seen and examined this patient.: Yes I have fully participated in the care of the patient.: Yes I have reviewed all pertinent clinical information: Yes
[2018-06-19] MEDS: Pantoprazole 40 mg EC Tab PO SCH (06:48)
[2018-06-19 07:06] LABS: BASO # 0.01 K/mm3 (0.0-2.0); BASO % 0.1 % (0.0-3.0); HEMOGLOBIN 12.9 g/dL (12.0-16.0); LYMPH # 1.5 (1.2-3.4); LYMPH % 16.2 % (22.0-35.0); MEAN CELL VOLUME 84.5 fl (80.0-105.0); MEAN CORPUSCULAR HEMOGLOBIN 28.5 pg (25.0-35.0); MEAN CORPUSCULAR HGB CONC 33.7 g/dl (31.0-37.0); MEAN PLATELET VOLUME 9.2 fl (7.0-11.0); MONO # 0.5 (0.1-0.6); MONO % 5.5 % (1.0-6.0); RBC 4.53 10^6/uL (3.5-6.1); RED CELL DISTRIBUTION WIDTH 12.1 % (11.5-14.5); WHITE BLOOD COUNT 9.5 10^3/uL (4.5-11.0)
[2018-06-19 07:14] LABS: ALB/GLOB RATIO 1.1 (1.1-1.8); ALT/SGPT 21 U/L (7-56); AST/SGOT 27 U/L (14-36); BLOOD UREA NITROGEN 8 mg/dL (7-21); CALCIUM 9.4 mg/dL (8.4-10.5); GFR NON-AFRICAN AMERICAN > 60
--- NOTE | 2018-06-19 09:30 | CT ---
Date of service: 06/18/2018 PROCEDURE: CT Angiography of the neck with contrast HISTORY: cva COMPARISON: None. TECHNIQUE: Contiguous axial images of the neck were obtained from the level of the skull-base to the superior mediastinum in the arteriographic phase of enhancement. Coronal and sagittal reformats or also generated. IV contrast dose: Radiation dose: Total exam DLP = 638.79 mGy-cm. This CT exam was performed using one or more of the following dose reduction techniques: Automated exposure control, adjustment of the mA and/or kV according to patient size, and/or use of iterative reconstruction technique. FINDINGS: RIGHT CAROTID ARTERIES: Common Carotid Artery: Normal. Carotid Bifurcation: Normal. Internal Carotid Artery:Normal. External Carotid Artery (proximal branches): Normal. LEFT CAROTID ARTERIES: Common Carotid Artery: Normal. Carotid Bifurcation: Normal. Internal Carotid Artery:Normal. External Carotid Artery (proximal branches): Normal. VERTEBRAL ARTERIES: Right Vertebral Artery: Normal. Left Vertebral Artery: Normal. OTHER FINDINGS: no aortic atherosclerotic calcification or mural plaque present. IMPRESSION: Normal CT Angiography of the neck. CT Angiography of the Brain. HISTORY: cva COMPARISON: None available. TECHNIQUE: CT angiography of the intracranial arteries was performed. Coronal and sagittal maximum intensity projection reformated images were generated. Radiation dose: Total exam DLP = 638.79 mGy-cm. This CT exam was performed using one or more of the following dose reduction techniques: Automated exposure control, adjustment of the mA and/or kV according to patient size, and/or use of iterative reconstruction technique. FINDINGS: INTERNAL CEREBRAL ARTERIES: Unremarkable. The skull base, petrous, cavernous and supraclinoid segments are bilaterally widely patent. ANTERIOR CEREBRAL ARTERIES: Unremarkable. A1 and A2 segments are widely patent. Smaller distal branches unremarkable, as visualized. MIDDLE CEREBRAL ARTERIES: Unremarkable. M1 and M2 segments are widely patent. Perisylvian branches grossly symmetric. POSTERIOR CIRCULATION: Basilar Artery: Unremarkable. Distal Vertebral Arteries: Unremarkable. Posterior Cerebral Arteries: Unremarkable. Posterior Inferior Cerebellar Arteries: Unremarkable. ANEURYSM/ VASCULAR MALFORMATIONS: None. OTHER FINDINGS: The report concurs with the preliminary [facility] report IMPRESSION: Unremarkable CT Angiography of the Brain.
[2018-06-19] MEDS: Enoxaparin 40 mg Syringe SC SCH (09:38)
--- NOTE | 2018-06-19 10:37 | MRI ---
Date of service: 06/18/2018 PROCEDURE: MRI BRAIN WITHOUT CONTRAST HISTORY: cva COMPARISON: None available. TECHNIQUE: Multiplanar, multisequence MR images of the brain were obtained without intravenous contrast enhancement. FINDINGS: HEMORRHAGE: None DWI: No evidence of an acute or early subacute infarction. BRAIN PARENCHYMA: No mass effect or edema. No atrophy or chronic microvascular ischemic changes. VENTRICLES: Unremarkable. No hydrocephalus. CRANIUM: Unremarkable. ORBITS: Grossly unremarkable. PARANASAL SINUSES/MASTOIDS: Clear VASCULAR SYSTEM: Skull base flow voids intact. OTHER FINDINGS: The report concurs with the preliminary [facility] report IMPRESSION: Unremarkable non contrast enhanced MRI of the brain.
--- NOTE | 2018-06-19 10:41 | MRI ---
Date of service: 06/18/2018 PROCEDURE: Magnetic Resonance Angiography Brain HISTORY: MR venous head COMPARISON: None available. TECHNIQUE: 3D time of flight MR angiography of the intracranial arteries was performed. Rotating maximum intensity projection images were generated. Postcontrast imaging of the venous system was also obtained FINDINGS: INTERNAL CAROTID ARTERIES: Unremarkable. The skull base, petrous, cavernous and supraclinoid segments are bilaterally widely patient. ANTERIOR CEREBRAL ARTERIES: Unremarkable. A1 and A2 segments are widely patent. Smaller distal branches unremarkable, as visualized. MIDDLE CEREBRAL ARTERIES: Unremarkable. M1 and M2 segments are widely patent. Perisylvian branches grossly symmetric. POSTERIOR CIRCULATION: Basilar Artery: Unremarkable. Distal Vertebral Arteries: Unremarkable. Posterior Cerebral Arteries: Unremarkable. Posterior Inferior Cerebellar Arteries: Unremarkable. ANEURYSM/ VASCULAR MALFORMATIONS: None. OTHER FINDINGS: The MR venogram shows no evidence of venous thrombosis. The sagittal sinus, transverse and sigmoid sinuses are widely patent. The report concurs with the preliminary [facility] report IMPRESSION: Unremarkable arteriogram and venogram of the intracranial circulation
--- NOTE | 2018-06-19 11:16 | MRI ---
Date of service: 06/18/2018 PROCEDURE: MR Angiography of the neck without contrast HISTORY: cva, cerebral venous thrombosis COMPARISON: None available. TECHNIQUE: 3D [id number] angiography of the neck was performed. Rotating maximum intensity projection images of the cervical carotid and vertebral arteries were generated. The origins of the common carotid arteries were not visualized, which is a limitation inherent to the non-contrast time of flight technique. FINDINGS: RIGHT CAROTID ARTERIES: Common Carotid Artery: Normal. Carotid Bifurcation: Normal. Internal Carotid Artery:Normal. External Carotid Artery (proximal branches): Normal. LEFT CAROTID ARTERIES: Common Carotid Artery: Normal. Carotid Bifurcation: Normal. Internal Carotid Artery:Normal. External Carotid Artery (proximal branches): Normal. VERTEBRAL ARTERIES: Right Vertebral Artery: Normal. Left Vertebral Artery: Normal. OTHER FINDINGS: The report concurs with the preliminary [facility] report IMPRESSION: Normal MR Angiography of the neck.
[2018-06-19 14:35] LABS: FOLATE 10.5 ng/mL
--- NOTE | 2018-06-19 14:45 | CP.PCM.CON ---
History of Present Illness - History of Present Illness History of Present Illness: Neurology Consultation Note: Consult requested by Dr. Bear Ms. Gonzalez is a 32-year-old woman with a past medical history of hypercoagulable state, only on Aspirin 81 mg daily, who states that she had a headache that occurred after left side face, arm and leg numbness. The headache was right sided, throbbing, and associated with photophobia and nausea. This improved after treatment in the ED with decadron, depakote and magnesium sulfate. MRI, MRA and MRV of the head/neck were normal. She is back to baseline today. Review of Systems - Review of Systems All systems: reviewed and no additional remarkable complaints except Past Patient History - Infectious Disease Hx of Infectious Diseases: None - Past Social History Smoking Status: Current Some Days Smoker - CARDIAC Hx Cardiac Disorders: No - PULMONARY Hx Respiratory Disorders: Yes - NEUROLOGICAL Hx Neurological Disorder: Yes Hx Migraine: Yes - HEENT Hx HEENT Problems: No - RENAL Hx Chronic Kidney Disease: No - ENDOCRINE/METABOLIC Hx Endocrine Disorders: No - HEMATOLOGICAL/ONCOLOGICAL Hx Blood Disorders: Yes 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 - INTEGUMENTARY Hx Dermatological Problems: No - MUSCULOSKELETAL/RHEUMATOLOGICAL Hx Musculoskeletal Disorders: No Hx Falls: No - GASTROINTESTINAL Hx Gastrointestinal Disorders: No - GENITOURINARY/GYNECOLOGICAL Hx Genitourinary Disorders: No - PSYCHIATRIC Hx Psychophysiologic Disorder: No Hx Substance Use: No - SURGICAL HISTORY Hx Orthopedic Surgery: Yes (l knee acl) Other/Comment: L knee ACL - ANESTHESIA Hx Anesthesia: Yes Hx Anesthesia Reactions: No Hx Malignant Hyperthermia: No Meds Allergies/Adverse Reactions: Allergies Allergy/AdvReac Type Severity Reaction Status Date / Time No Known Allergies Allergy Verified 06/18/18 17:11 - Medications Medications: Current Medications Aspirin (Ecotrin) 81 mg PO 0800 [facility] Last Admin: 06/19/18 07:44 Dose: 81 mg Atorvastatin Calcium (Lipitor) 80 mg PO DIN [facility] Last Admin: 06/19/18 00:06 Dose: 80 mg Diphenhydramine HCl (Benadryl) 10 mg IVP Q6H PRN PRN Reason: Headache Enoxaparin Sodium (Lovenox) 40 mg SC DAILY [facility]; Protocol Last Admin: 06/19/18 09:38 Dose: 40 mg Ketorolac Tromethamine (Toradol) 15 mg IVP Q6H PRN PRN Reason: Headache Ondansetron HCl (Zofran Inj) 4 mg IVP STAT PRN PRN Reason: Headache Ondansetron HCl (Zofran Inj) 4 mg IVP Q6H PRN PRN Reason: Nausea/Vomiting Pantoprazole Sodium (Protonix Ec Tab) 40 mg PO 0600 [facility] Last Admin: 06/19/18 06:48 Dose: 40 mg Physical Exam - Constitutional Appears: Well - Head Exam Head Exam: ATRAUMATIC, NORMAL INSPECTION, NORMOCEPHALIC - Eye Exam Eye Exam: EOMI, Normal appearance, PERRL Pupil Exam: NORMAL ACCOMODATION, PERRL - ENT Exam ENT Exam: Mucous Membranes Moist, Normal Exam - Neck Exam Neck exam: Positive for: Normal Inspection - Respiratory Exam Respiratory Exam: Clear to Auscultation Bilateral, NORMAL BREATHING PATTERN - Cardiovascular Exam Cardiovascular Exam: REGULAR RHYTHM - GI/Abdominal Exam GI & Abdominal Exam: Normal Bowel Sounds, Soft. absent: Tenderness - Extremities Exam Extremities exam: Positive for: normal inspection - Back Exam Back exam: NORMAL INSPECTION - Neurological Exam Neurological exam: Alert, CN II-XII Intact, Normal Gait, Oriented x3, Reflexes Normal - Psychiatric Exam Psychiatric exam: Normal Affect, Normal Mood - Skin Skin Exam: Dry, Intact, Normal Color, Warm Results - Vital Signs Recent Vital Signs: Last Vital Signs Temp 98.3 F 06/19/18 13:28 Pulse 96 H 06/19/18 13:28 Resp 18 06/19/18 13:28 BP 107/70 06/19/18 13:28 Pulse Ox 95 06/19/18 12:30 - Labs Result Diagrams: 06/19/18 06:00 06/19/18 06:00 Labs: Laboratory Results - last 24 hr 06/18/18 06/18/18 06/18/18 17:34 17:34 17:34 WBC 8.0 RBC 4.39 Hgb 13.0 Hct 37.9 MCV 86.3 MCH 29.6 MCHC 34.3 RDW 12.2 Plt Count 253 MPV 9.1 Neut % (Auto) 54.8 Lymph % (Auto) 36.5 H [place] % (Auto) 6.7 H Eos % (Auto) 1.6 Baso % (Auto) 0.4 Lymph # (Auto) 2.9 [place] # (Auto) 0.5 Eos # (Auto) 0.1 Baso # (Auto) 0.03 Absolute Neuts (auto) 4.36 PT 12.4 INR 1.12 APTT 31.3 Sodium 139 Potassium 3.6 Chloride 103 Carbon Dioxide 26 Anion Gap 13 BUN 11 Creatinine 0.7 Est GFR ( Amer) > 60 Est GFR (Non-Af Amer) > 60 Random Glucose 107 Hemoglobin A1c Calcium 9.3 Phosphorus Magnesium Total Bilirubin 0.2 AST 28 ALT 22 Alkaline Phosphatase 107 Troponin I < 0.01 Total Protein 8.1 Albumin 4.1 Globulin 4.0 Albumin/Globulin Ratio 1.0 L Triglycerides 191 H Cholesterol 185 LDL Cholesterol Direct 126 HDL Cholesterol 37 Vitamin B12 Folate Blood Type Blood Type Confirm Antibody Screen Antibody Identification BBK History Checked 06/18/18 06/18/18 06/18/18 17:34 18:05 18:51 WBC RBC Hgb Hct MCV MCH MCHC RDW Plt Count MPV Neut % (Auto) Lymph % (Auto) [place] % (Auto) Eos % (Auto) Baso % (Auto) Lymph # (Auto) [place] # (Auto) Eos # (Auto) Baso # (Auto) Absolute Neuts (auto) PT INR APTT Sodium Potassium Chloride Carbon Dioxide Anion Gap BUN Creatinine Est GFR ( Amer) Est GFR (Non-Af Amer) Random Glucose Hemoglobin A1c 5.5 Calcium Phosphorus Magnesium Total Bilirubin AST ALT Alkaline Phosphatase Troponin I Total Protein Albumin Globulin Albumin/Globulin Ratio Triglycerides Cholesterol LDL Cholesterol Direct HDL Cholesterol Vitamin B12 Folate Blood Type O POSITIVE Blood Type Confirm O POSITIVE Antibody Screen Positive Antibody Identification Inconclusive Panel BBK History Checked No verified bt 06/19/18 06/19/18 06:00 06:00 WBC 9.5 RBC 4.53 Hgb 12.9 Hct 38.3 MCV 84.5 MCH 28.5 MCHC 33.7 RDW 12.1 Plt Count 271 MPV 9.2 Neut % (Auto) 78.2 H Lymph % (Auto) 16.2 L [place] % (Auto) 5.5 Eos % (Auto) 0.0 L Baso % (Auto) 0.1 Lymph # (Auto) 1.5 [place] # (Auto) 0.5 Eos # (Auto) 0.0 Baso # (Auto) 0.01 Absolute Neuts (auto) 7.39 H PT INR APTT Sodium 140 Potassium 4.5 Chloride 109 H Carbon Dioxide 23 Anion Gap 13 BUN 8 Creatinine 0.6 L Est GFR ( Amer) > 60 Est GFR (Non-Af Amer) > 60 Random Glucose 110 Hemoglobin A1c Calcium 9.4 Phosphorus 3.0 Magnesium 2.2 Total Bilirubin 0.5 AST 27 ALT 21 Alkaline Phosphatase 104 Troponin I Total Protein 7.6 Albumin 4.0 Globulin 3.6 Albumin/Globulin Ratio 1.1 Triglycerides Cholesterol LDL Cholesterol Direct HDL Cholesterol Vitamin B12 505 Folate 10.5 Blood Type Blood Type Confirm Antibody Screen Antibody Identification BBK History Checked Assessment & Plan (1) Complicated migraine Assessment and Plan: Will start magnesium oxide 400 mg BID for prevention. She has only had one prior episode of migraine similar to this. She will follow up with neurology as an outpatient. No further recommendations at this time. Thank you for this consultation. Status: Acute
--- NOTE | 2018-06-19 14:58 | CP.PCM.PN ---
<Brando Bear - Last Filed: 06/19/18 14:55> Subjective - Date & Time of Evaluation Date of Evaluation: 06/19/18 Time of Evaluation: 14:55 - Subjective Subjective: Brando Bear DO PGY1 - Internal Medicine Child [employer] Youth Program Assistant - Hospitalist Progress Note Pt. was seen and evaluated at bedside this morning; Overnight patient reported Nausea w/ episodes of NBNB vomitus. At time of evaluation patient is complaining of vomitus only; No complaints of numbness, weakness, visual changes, or headache. PRN migraine medication not utilized overnight. Objective - Vital Signs/Intake and Output Vital Signs (last 24 hours): Temp Pulse Resp BP Pulse Ox 98.3 F 96 H 18 107/70 95 06/19/18 13:28 06/19/18 13:28 06/19/18 13:28 06/19/18 13:28 06/19/18 12:30 Intake and Output: 06/19/18 06/19/18 06:59 18:59 Intake Total 520 Output Total 2 Balance 518 - Medications Medications: Current Medications Aspirin (Ecotrin) 81 mg PO 0800 [facility] Last Admin: 06/19/18 07:44 Dose: 81 mg Atorvastatin Calcium (Lipitor) 80 mg PO DIN [facility] Last Admin: 06/19/18 00:06 Dose: 80 mg Diphenhydramine HCl (Benadryl) 10 mg IVP Q6H PRN PRN Reason: Headache Enoxaparin Sodium (Lovenox) 40 mg SC DAILY [facility]; Protocol Last Admin: 06/19/18 09:38 Dose: 40 mg Ketorolac Tromethamine (Toradol) 15 mg IVP Q6H PRN PRN Reason: Headache Ondansetron HCl (Zofran Inj) 4 mg IVP STAT PRN PRN Reason: Headache Ondansetron HCl (Zofran Inj) 4 mg IVP Q6H PRN PRN Reason: Nausea/Vomiting Pantoprazole Sodium (Protonix Ec Tab) 40 mg PO 0600 [facility] Last Admin: 06/19/18 06:48 Dose: 40 mg - Labs Labs: 06/19/18 06:00 06/19/18 06:00 PT 12.4 SECONDS (9.4-12.5) 06/18/18 17:34 INR 1.12 06/18/18 17:34 APTT 31.3 Seconds (26.9-38.3) 06/18/18 17:34 - Constitutional Appears: Well, Non-toxic, No Acute Distress - Head Exam Head Exam: ATRAUMATIC, NORMOCEPHALIC - Eye Exam Eye Exam: EOMI, Normal appearance, PERRL. absent: Scleral icterus - Respiratory Exam Respiratory Exam: Clear to Ausculation Bilateral, NORMAL BREATHING PATTERN - Cardiovascular Exam Cardiovascular Exam: REGULAR RHYTHM, RRR. absent: Murmur - GI/Abdominal Exam GI & Abdominal Exam: Soft. absent: Tenderness - Neurological Exam Neurological Exam: Alert, Awake, CN II-XII Intact, Oriented x3 Neuro motor strength exam: Left Upper Extremity: 5, Right Upper Extremity: 5, Left Lower Extremity: 5, Right Lower Extremity: 5 - Psychiatric Exam Psychiatric exam: Normal Affect, Normal Mood - Skin Skin Exam: Dry, Intact, Warm Assessment and Plan (1) Complicated migraine Assessment & Plan: CVA Ruled out; Thromboembolism ruled out; Head CT 06/18/18 17:30 : IMPRESSION : No acute intracranial abnormalities. No significant findings to account for the clinical presentation. CT Angiography of the Brain : IMPRESSION: Unremarkable CT Angiography of the Brain. Neck MRA 06/18/18 17:36 : IMPRESSION: Normal MR Angiography of the neck. Head/Neck CTA 06/18/18 17:38 : IMPRESSION: Normal CT Angiography of the neck. Head MRA 06/18/18 17:44 : IMPRESSION: Unremarkable arteriogram and venogram of the intracranial circulation Brain MRI 06/18/18 17:50 : IMPRESSION: Unremarkable non contrast enhanced MRI of the brain. Start Mag Ox 400 BID Neurocheck wnl Migraine Cocktail as needed - Benadryl, Zofran, Toradol Neurology Consulted; Most likely complicated migraine; Will need to follow up w/ neurology as outpt Status: Acute (2) Factor V Leiden Assessment & Plan: Known PMH Factor V Leidien + Protein C Deficiency Patient follows up w/ Dr. Kip Bear Heme-Onc as outpt Only Takes ASA 81 QD; Will continue inpt Heme-Onc consulted, appreciate reccs Status: Chronic <Maryjo Bear R - Last Filed: 06/20/18 06:59> Objective - Vital Signs/Intake and Output Vital Signs (last 24 hours): Temp Pulse Resp BP Pulse Ox 97.9 F 83 20 110/71 99 06/20/18 05:54 06/20/18 06:00 06/20/18 05:54 06/20/18 05:54 06/20/18 05:54 Intake and Output: 06/19/18 06/20/18 18:59 06:59 Intake Total 1660 320 Output Total 2 2 Balance 1658 318 - Medications Medications: Current Medications Aspirin (Ecotrin) 81 mg PO 0800 [facility] Last Admin: 06/19/18 07:44 Dose: 81 mg Diphenhydramine HCl (Benadryl) 10 mg IVP Q6H PRN PRN Reason: Headache Last Admin: 06/19/18 22:58 Dose: 10 mg Enoxaparin Sodium (Lovenox) 40 mg SC DAILY [facility]; Protocol Last Admin: 06/19/18 09:38 Dose: 40 mg Ketorolac Tromethamine (Toradol) 15 mg IVP Q6H PRN PRN Reason: Headache Last Admin: 06/19/18 22:58 Dose: 15 mg Magnesium Oxide (Mag-Ox) 400 mg PO BID [facility] Last Admin: 06/19/18 18:01 Dose: 400 mg Ondansetron HCl (Zofran Inj) 4 mg IVP STAT PRN PRN Reason: Headache Ondansetron HCl (Zofran Inj) 4 mg IVP Q6H PRN PRN Reason: Nausea/Vomiting Pantoprazole Sodium (Protonix Ec Tab) 40 mg PO 0600 [facility] Last Admin: 06/20/18 05:16 Dose: 40 mg - Labs Labs: 06/20/18 05:30 06/19/18 06:00 PT 12.4 SECONDS (9.4-12.5) 06/18/18 17:34 INR 1.12 06/18/18 17:34 APTT 31.3 Seconds (26.9-38.3) 06/18/18 17:34 Attending/Attestation - Attestation I have personally seen and examined this patient.: Yes I have fully participated in the care of the patient.: Yes I have reviewed all pertinent clinical information, including history, physical exam and plan: Yes Notes (Text): Patient seen and examined by me with resident at approximately 8:35AM on 06/19/18 in the emergency room. Case including HPI, physical exam, and assessment and plan discussed with resident. Agree with above with following additions/cor rections. Patient is a 32-year-old female with past medical history significant for factor V Leiden, protein S deficiency, and migraines that presented to the emergency room with left-sided upper and lower extremity numbness so currently with right- sided headache and blurry vision. Patient states that she is feeling better today. States that the blurry vision has resolved. She still has a slight headache but is improved from yesterday. She states that the left-sided numbness has also resolved. She denies any dizziness or lightheadedness. No chest pain or shortness of breath. No fevers or chills. No nausea, vomiting, or abdominal pain. No dysuria. No diarrhea or constipation. Physical exam: General: Awake and alert lying in bed in no acute distress. HEENT: Normocephalic, atraumatic. Extraocular muscles intact, pupils equal and reactive, no scleral icterus. Oropharynx is pink and moist. No pharyngeal erythema or exudate appreciated. Neck is supple. Cardiovascular: Regular rhythm. Normal S1, S2. No murmurs, rubs, or gallops appreciated Pulmonary: Normal respiratory effort. No rhonchi, rales, or wheezing appreciated. Gastrointestinal: Soft. Nontender. Nodistended. Positive bowel sounds all 4 quadrants. No guarding. Musculoskeletal: Normal range of motion all extremities. No calf tenderness. No edema appreciated. Central nervous system: AAOx3. CN 2-12 grossly intact Dermatologic: Skin warm and dry. Assessment and plan: Patient is a 32-year-old female with past medical history significant for factor V Leiden, protein S deficiency, and migraines that presented to the emergency room with left-sided upper and lower extremity numbness so currently with right-sided headache and blurry vision. 1. Complicated migraine. Resolving. Neurology recommendations appreciated. Placed on magnesium oxide. Head CT per radiology showed no acute intracranial abnormalities. Neck MRA per radiologist showed normal MR angiography of the neck. Head and neck CTA per radiologist's showed normal CT angiography of the neck, unremarkable CT angiography of the brain. Head MRA per radiologist showed unremarkable arteriogram and venogram of the intracranial circulation. Brain MRI per radiologist showed unremarkable noncontrast enhanced MRI of the brain. 2. Left sided numbness. Resolved. Imaging as above. Pending EEG. 3. Factor V Leiden. Hematology/oncology consulted, pending recommendations. Continue with aspirin and Lovenox. Case was discussed in detail with the patient regarding current diagnosis and treatment plan. All questions answered.
[2018-06-19] MEDS: Magnesium Oxide 400 mg Tab UD PO SCH (18:01)
--- NOTE | 2018-06-19 19:10 | CON ---
DATE: 06/19/2018 HEMATOLOGY CONSULTATION HISTORY OF PRESENT ILLNESS: This is a 32-year-old woman. I interviewed her with her mother and father present and went over the whole history. She says number one, her sister had a pulmonary embolism and her father also has had a pulmonary embolism in the past. She, at the age of 25, was on control pills to regulate her menstrual cycle, and had a pulmonary embolism at that time. She was treated at [facility], and she was put on a blood thinner, the Coumadin for about four months, but she says she did not get any insurance. She could not follow up. She went back to work, and she did not see strategic marketing specialist or have any kind of workup and only took the pills for about four months. In the meantime, she had a in 2016, was treated by of [facility] and was put on Lovenox. During that period of time, had an uneventful vaginal delivery, but never received any further treatment after the delivery. She says at that time, she was told that she had a factor V heterozygous deficiency and also she had a S factor deficiency. She was seen by Dr. Reji Bear at [facility] about two to three months ago. 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 Reji Bear who evidently did multiple blood tests and told her that the S protein was normal and that was just artificially low during the but that she did have a heterozygous factor V coming from her father and not her mother. She was not put on any medication, but she was told to take an aspirin every day. Her history of present illness is such that on Thursday, she was at work and at 5 o'clock in the afternoon, suddenly she started developing a cold numb feeling that started from her left ankle and toes and started to sending and progressing up the whole left leg and left side of her body including her face, at which point, she did have a right-sided headache. No loss of control. No seizure activity in terms of head movements, etc. It lasted about 20 minutes she says, and then on Thursday, she says that it was about 1 o'clock in the afternoon, she was going for lunch with her friend at work and suddenly the same event occurred. She says to me that her friend noticed that her lip on left side was twitching and turned twitching and with the same event occurring. That is why she is in hospital now. PHYSICAL EXAMINATION: SKIN: No petechiae. No bruises. HEENT: Anicteric. NODES: Nonpalpable in the axillary, cervical, supraclavicular or inguinal regions. LUNGS: Clear at present. No vertebral tenderness. HEART: S1 and S2. No murmur. ABDOMEN: Shows no liver, no spleen, no tenderness, no rebound. EXTREMITIES: No edema. CENTRAL NERVOUS SYSTEM: Plantars are downgoing bilaterally. ASSESSMENT AND PLAN: I spoke with the patient and the parents. I explained that we are trying to essentially figure out was the event in the brain due to electrical wiring defect, in other words a seizure activity or was it due to the blood vessel not feeding the area in that brain correctly and that she is having blood clots. Right now, she is on Lovenox and aspirin while they continue to do their workup. I told them that I will reach out to Dr. Bear on Thursday, right now he is in [place], and I will try to go over some of those records. I told her that if she is discharged over the weekend, etc., she should make an appointment with Dr. Bear as soon as possible, and I will try to reach out to him and tell him to make sure he sees her because he may have information that I am not aware of. It is unclear whether this is due to the blood vessel issues. I think it seems to me, she probably needs at least an EEG to rule out the seizure activity, but for now to make a diagnosis, I will continue the Lovenox and continue the aspirin until diagnosis has been established or a treatment plan has been decided upon. So at this point, I am not going to change any treatment till we talk to Dr. Bear on Thursday. If she is discharged, I will have her see Dr. Bear go over the studies this week since she gets out of the hospital. Kevan MD Stefanie
[2018-06-19] MEDS: DiphenhydrAMINE 50 mg/ml Inj IVP PRN (22:58)
[2018-06-20] MEDS: Pantoprazole 40 mg EC Tab PO SCH (05:16)
[2018-06-20 05:55] VITALS: O2SAT 99
[2018-06-20 06:17] LABS: BASO # 0.03 K/mm3 (0.0-2.0); BASO % 0.3 % (0.0-3.0); EOS # 0.1 (0.0-0.7); EOS % 1.1 % (1.5-5.0); HEMOGLOBIN 12.4 g/dL (12.0-16.0); LYMPH # 3.7 (1.2-3.4); LYMPH % 38.3 % (22.0-35.0); MEAN CELL VOLUME 86.4 fl (80.0-105.0); MEAN CORPUSCULAR HEMOGLOBIN 28.6 pg (25.0-35.0); MEAN CORPUSCULAR HGB CONC 33.2 g/dl (31.0-37.0); MEAN PLATELET VOLUME 9.5 fl (7.0-11.0); MONO # 0.7 (0.1-0.6); MONO % 7.2 % (1.0-6.0); RBC 4.33 10^6/uL (3.5-6.1); RED CELL DISTRIBUTION WIDTH 12.2 % (11.5-14.5); WHITE BLOOD COUNT 9.8 10^3/uL (4.5-11.0)
[2018-06-20 07:58] LABS: ALBUMIN 3.3 g/dL (3.0-4.8); ALT/SGPT 22 U/L (7-56); AST/SGOT 22 U/L (14-36); BLOOD UREA NITROGEN 15 mg/dL (7-21); CALCIUM 8.8 mg/dL (8.4-10.5); GFR NON-AFRICAN AMERICAN > 60
[2018-06-20] MEDS: Magnesium Oxide 400 mg Tab UD PO SCH (09:51)
[2018-06-20] MEDS: Enoxaparin 40 mg Syringe SC SCH (09:52)
--- NOTE | 2018-06-20 11:25 | PCM.EEG ---
Electroencephalogram Report - Electroencephalogram Report Procedure Date: 06/19/18 Medication: ASA, ketorolac Interpretation: Technical Information: This was a 16 -channel EEG, 1-channel EKG routine EEG performed using an [employer] machine. Electrodes were applied using the 10/20 international placement system. Start; 12;30 End; 13;55 Total 55 min Clinical Information: seizures During resting wakefulness there was a symmetric posterior dominant rhythm at 8.5-9.5 Hz, 30-50 uV, which was reactive to eye opening and closing. Drowsiness (12;52) was associated with fragmentation of the posterior dominant rhythm and with slow roving eye movements. Light sleep (13;02) was recorded and was characterized by central vertex waves, sleep spindles, and bilateral theta slowing. Hyperventilation was not performed. Photic stimulation was performed and there were no changes on the record. Focal abnormality; none ECG was associated with a normal sinus rhythm. Impression: This is a normal awake drowsy and sleep electroencephalogram.
[2018-06-20] MEDS: DiphenhydrAMINE 50 mg/ml Inj IVP PRN (12:28)
[2018-06-20 13:21] VITALS: BP 112/72; PULSE 79; RESP 18; TEMP 98.5
--- NOTE | 2018-06-20 13:28 | CP.PCM.DIS ---
<Brando Bear - Last Filed: 06/21/18 00:03> Provider - Provider Date of Admission: 06/18/18 18:38 Attending physician: Maryjo Bear DO Primary care physician: Rachel Tuttle MD Consults: 06/18/18 17:30 Stroke Team Consult Stat Comment: Consulting Provider: Neurohospitalist Consulting Physician: NEUROHOSP Neurohospitalist for Consult: Arthur Flood Neurohospitalist for Consult: Meme Kirkpatrick Reason for Consult: transient cva, hx factor v leiden 06/18/18 21:58 Consult [Physician Consult] Routine Comment: headache,paraesthesia, factor v def,proteins s def Consulting Provider: Yin Vick Consulting Physician: Yin Vick Reason for Consult: headache,paraesthesia, factor v def,proteins s def Time Spent in preparation of Discharge (in minutes): 45 Diagnosis - Discharge Diagnosis (1) Complicated migraine Status: Acute (2) Factor V Leiden Status: Chronic Hospital Course - Lab Results Lab Results: Most Recent Lab Values WBC 9.8 10^3/uL (4.5-11.0) 06/20/18 05:30 RBC 4.33 10^6/uL (3.5-6.1) 06/20/18 05:30 Hgb 12.4 g/dL (12.0-16.0) 06/20/18 05:30 Hct 37.4 % (36.0-48.0) 06/20/18 05:30 MCV 86.4 fl (80.0-105.0) 06/20/18 05:30 MCH 28.6 pg (25.0-35.0) 06/20/18 05:30 MCHC 33.2 g/dl (31.0-37.0) 06/20/18 05:30 RDW 12.2 % (11.5-14.5) 06/20/18 05:30 Plt Count 266 10^3/uL (120.0-450.0) 06/20/18 05:30 MPV 9.5 fl (7.0-11.0) 06/20/18 05:30 Neut % (Auto) 53.1 % (50.0-68.0) 06/20/18 05:30 Lymph % (Auto) 38.3 % (22.0-35.0) H 06/20/18 05:30 [place] % (Auto) 7.2 % (1.0-6.0) H 06/20/18 05:30 Eos % (Auto) 1.1 % (1.5-5.0) L 06/20/18 05:30 Baso % (Auto) 0.3 % (0.0-3.0) 06/20/18 05:30 Lymph # (Auto) 3.7 (1.2-3.4) H 06/20/18 05:30 [place] # (Auto) 0.7 (0.1-0.6) H 06/20/18 05:30 Eos # (Auto) 0.1 (0.0-0.7) 06/20/18 05:30 Baso # (Auto) 0.03 K/mm3 (0.0-2.0) 06/20/18 05:30 Absolute Neuts (auto) 5.18 (1.4-6.5) 06/20/18 05:30 PT 12.4 SECONDS (9.4-12.5) 06/18/18 17:34 INR 1.12 06/18/18 17:34 APTT 31.3 Seconds (26.9-38.3) 06/18/18 17:34 Sodium 140 mmol/L (132-148) 06/20/18 05:30 Potassium 3.6 mmol/L (3.6-5.0) 06/20/18 05:30 Chloride 108 mmol/L (98-107) H 06/20/18 05:30 Carbon Dioxide 23 mmol/L (21-33) 06/20/18 05:30 Anion Gap 13 (10-20) 06/20/18 05:30 BUN 15 mg/dL (7-21) 06/20/18 05:30 Creatinine 0.7 mg/dl (0.7-1.2) 06/20/18 05:30 Est GFR ( Amer) > 60 06/20/18 05:30 Est GFR (Non-Af Amer) > 60 06/20/18 05:30 Random Glucose 126 mg/dL (70-110) H 06/20/18 05:30 Hemoglobin A1c 5.5 % (4.2-6.5) 06/18/18 17:34 Calcium 8.8 mg/dL (8.4-10.5) 06/20/18 05:30 Phosphorus 3.0 mg/dL (2.5-4.5) 06/19/18 06:00 Magnesium 2.2 mg/dL (1.7-2.2) 06/19/18 06:00 Total Bilirubin 0.2 mg/dL (0.2-1.3) 06/20/18 05:30 AST 22 U/L (14-36) 06/20/18 05:30 ALT 22 U/L (7-56) 06/20/18 05:30 Alkaline Phosphatase 90 U/L (38-126) 06/20/18 05:30 Troponin I < 0.01 ng/mL 06/18/18 17:34 Total Protein 6.8 g/dL (5.8-8.3) 06/20/18 05:30 Albumin 3.3 g/dL (3.0-4.8) 06/20/18 05:30 Globulin 3.5 gm/dL 06/20/18 05:30 Albumin/Globulin Ratio 1.0 (1.1-1.8) L 06/20/18 05:30 Triglycerides 191 mg/dL (35-160) H 06/18/18 17:34 Cholesterol 185 mg/dL (130-200) 06/18/18 17:34 LDL Cholesterol Direct 126 mg/dL (0-129) 06/18/18 17:34 HDL Cholesterol 37 mg/dL (29-60) 06/18/18 17:34 Vitamin B12 505 pg/mL (239-931) 06/19/18 06:00 Folate 10.5 ng/mL 06/19/18 06:00 Blood Type O POSITIVE 06/18/18 18:05 Blood Type Confirm O POSITIVE 06/18/18 18:51 Antibody Screen Positive 06/18/18 18:05 Antibody Identification Inconclusive Panel 06/18/18 18:05 BBK History Checked No verified bt 06/18/18 18:05 - Hospital Course Hospital Course: Brando Bear DO PGy1 Internal Medicine Director Outpatient Services Hospitalist DC Summary: Patient is a 32F w/ a PMH of Factor V Leiden, Protein S deficiency, Migraines, Presenting w/ complaints of left sided upper and lower extremity neuropathy. With associated headaches, nausea, and blurry vision. Patient did report any motor deficits during admission. Given patient presentation, she was initially worked up as a code stroke and teleneurology was ordered. Patient had the imaging below performed in the emergency department. Head CT 06/18/18 17:30 : IMPRESSION : No acute intracranial abnormalities. No significant findings to account for the clinical presentation. CT Angiography of the Brain : IMPRESSION: Unremarkable CT Angiography of the Brain. Neck MRA 06/18/18 17:36 : IMPRESSION: Normal MR Angiography of the neck. Head/Neck CTA 06/18/18 17:38 : IMPRESSION: Normal CT Angiography of the neck. Head MRA 06/18/18 17:44 : IMPRESSION: Unremarkable arteriogram and venogram of the intracranial circulation Brain MRI 06/18/18 17:50 : IMPRESSION: Unremarkable non contrast enhanced MRI of the brain. NIHSS stroke scalle performed in ED lead to score of 1, and stroke was subsequently ruled out. Neurology followed patient who subsequently assessed patient as having complicated migraine and started her on Magnesium Oxide 400mg BID. Given Hx of factor V leiden, heme/onc was consulted as well who recommended completion of EEG prior to discharge. EEG was completed and resulted as normal. Heme/Onc recom mended patient follow up with her outpatient heme/onc doctor as soon as possible once discharged. Patient reported improvement in headaches after admission while on mag ox. Morning prior to discharge, patient was seen and evaluated at bedside. Patient reported no headaches, visual changes, numbness/tingling, weakness, cp, sob, abd pain, n/v/d/c. Medication reviewed w/ patient, and patient made aware MagOx has potential to cause diarrhea. Patient verbalized understanding of discharge plan as written below Patient was seen, evaluated, and discussed w/ attending physician Dr. Maryjo Bear prior to discharge Discharge Exam - Head Exam Head Exam: ATRAUMATIC, NORMOCEPHALIC - Eye Exam Eye Exam: EOMI, Normal appearance, PERRL - Respiratory Exam Respiratory Exam: Clear to PA & Lateral, NORMAL BREATHING PATTERN - Cardiovascular Exam Cardiovascular Exam: RRR. absent: Systolic Murmur - GI/Abdominal Exam GI & Abdominal Exam: Normal Bowel Sounds, Soft. absent: Tenderness - Extremities Exam Extremities exam: pedal pulses present - Neurological Exam Neurological exam: Alert, CN II-XII Intact, Oriented x3 Additional comments: 5/5 Gross UE and LE Strength BL - Psychiatric Exam Psychiatric exam: Normal Affect, Normal Mood Discharge Plan - Discharge Medications Prescriptions: Magnesium Oxide [Mag-Ox] 400 mg PO BID #60 tab - Follow Up Plan Condition: GOOD Disposition: HOME/ ROUTINE Instructions: Migraine Headache (DC) Additional Instructions: You were admitted for numbness and tingling due to a complicated migraine Please follow up with your primary care doctor within 3-5 days of discharge Please follow up with neurologist, Dr. Flood, within 3-5 days of discharge Please follow up with your workshop manager-oncologist, Dr. Kip Bear, within 3-5 days of discharge Please start taking Magnesium Oxide 400mg twice daily to prevent recurrence of your migraines. This medication can cause diarrhea. Please hold the medication and follow up with your doctor if diarrhea does develop. Please continue taking your previously prescribed Aspirin 81 Daily If your symptoms return or new concerning symptoms arise please go to the nearest emergency department immediately Referrals: Rachel Tuttle MD [Primary Care Provider] - Arthur Flood MD [Staff Provider] - Kip Bear MD [Staff Provider] - <Maryjo Bear - Last Filed: 06/21/18 11:51> Provider - Provider Date of Admission: 06/18/18 18:38 Attending physician: Maryjo Bear DO Primary care physician: Rachel Tuttle MD Consults: 06/18/18 17:30 Stroke Team Consult Stat Comment: Consulting Provider: Neurohospitalist Consulting Physician: NEUROHOSP Neurohospitalist for Consult: Arthur Flood Neurohospitalist for Consult: Meme Kirkpatrick Reason for Consult: transient cva, hx factor v leiden 06/18/18 21:58 Consult [Physician Consult] Routine Comment: headache,paraesthesia, factor v def,proteins s def Consulting Provider: Yin Vick Consulting Physician: Yin Vick Reason for Consult: headache,paraesthesia, factor v def,proteins s def Hospital Course - Lab Results Lab Results: Most Recent Lab Values WBC 9.8 10^3/uL (4.5-11.0) 06/20/18 05:30 RBC 4.33 10^6/uL (3.5-6.1) 06/20/18 05:30 Hgb 12.4 g/dL (12.0-16.0) 06/20/18 05:30 Hct 37.4 % (36.0-48.0) 06/20/18 05:30 MCV 86.4 fl (80.0-105.0) 06/20/18 05:30 MCH 28.6 pg (25.0-35.0) 06/20/18 05:30 MCHC 33.2 g/dl (31.0-37.0) 06/20/18 05:30 RDW 12.2 % (11.5-14.5) 06/20/18 05:30 Plt Count 266 10^3/uL (120.0-450.0) 06/20/18 05:30 MPV 9.5 fl (7.0-11.0) 06/20/18 05:30 Neut % (Auto) 53.1 % (50.0-68.0) 06/20/18 05:30 Lymph % (Auto) 38.3 % (22.0-35.0) H 06/20/18 05:30 [place] % (Auto) 7.2 % (1.0-6.0) H 06/20/18 05:30 Eos % (Auto) 1.1 % (1.5-5.0) L 06/20/18 05:30 Baso % (Auto) 0.3 % (0.0-3.0) 06/20/18 05:30 Lymph # (Auto) 3.7 (1.2-3.4) H 06/20/18 05:30 [place] # (Auto) 0.7 (0.1-0.6) H 06/20/18 05:30 Eos # (Auto) 0.1 (0.0-0.7) 06/20/18 05:30 Baso # (Auto) 0.03 K/mm3 (0.0-2.0) 06/20/18 05:30 Absolute Neuts (auto) 5.18 (1.4-6.5) 06/20/18 05:30 PT 12.4 SECONDS (9.4-12.5) 06/18/18 17:34 INR 1.12 06/18/18 17:34 APTT 31.3 Seconds (26.9-38.3) 06/18/18 17:34 Sodium 140 mmol/L (132-148) 06/20/18 05:30 Potassium 3.6 mmol/L (3.6-5.0) 06/20/18 05:30 Chloride 108 mmol/L (98-107) H 06/20/18 05:30 Carbon Dioxide 23 mmol/L (21-33) 06/20/18 05:30 Anion Gap 13 (10-20) 06/20/18 05:30 BUN 15 mg/dL (7-21) 06/20/18 05:30 Creatinine 0.7 mg/dl (0.7-1.2) 06/20/18 05:30 Est GFR ( Amer) > 60 06/20/18 05:30 Est GFR (Non-Af Amer) > 60 06/20/18 05:30 Random Glucose 126 mg/dL (70-110) H 06/20/18 05:30 Hemoglobin A1c 5.5 % (4.2-6.5) 06/18/18 17:34 Calcium 8.8 mg/dL (8.4-10.5) 06/20/18 05:30 Phosphorus 3.0 mg/dL (2.5-4.5) 06/19/18 06:00 Magnesium 2.2 mg/dL (1.7-2.2) 06/19/18 06:00 Total Bilirubin 0.2 mg/dL (0.2-1.3) 06/20/18 05:30 AST 22 U/L (14-36) 06/20/18 05:30 ALT 22 U/L (7-56) 06/20/18 05:30 Alkaline Phosphatase 90 U/L (38-126) 06/20/18 05:30 Troponin I < 0.01 ng/mL 06/18/18 17:34 Total Protein 6.8 g/dL (5.8-8.3) 06/20/18 05:30 Albumin 3.3 g/dL (3.0-4.8) 06/20/18 05:30 Globulin 3.5 gm/dL 06/20/18 05:30 Albumin/Globulin Ratio 1.0 (1.1-1.8) L 06/20/18 05:30 Triglycerides 191 mg/dL (35-160) H 03/29/19 17:34 Cholesterol 185 mg/dL (130-200) 06/18/18 17:34 LDL Cholesterol Direct 126 mg/dL (0-129) 06/18/18 17:34 HDL Cholesterol 37 mg/dL (29-60) 06/18/18 17:34 Vitamin B12 505 pg/mL (239-931) 06/19/18 06:00 Folate 10.5 ng/mL 06/19/18 06:00 Blood Type O POSITIVE 06/18/18 18:05 Blood Type Confirm O POSITIVE 06/18/18 18:51 Antibody Screen Positive 06/18/18 18:05 Antibody Identification Inconclusive Panel 06/18/18 18:05 BBK History Checked No verified bt 06/18/18 18:05 Attending/Attestation - Attestation I have personally seen and examined this patient.: Yes I have fully participated in the care of the patient.: Yes I have reviewed all pertinent clinical information, including history, physical exam and plan: Yes Notes (Text): Please note this DC summary is for 06/20/18 Patient seen and examined by me with resident at approximately 8:25AM and prior to discharge on 06/20/18. Case including discharge plan discussed with resident. Agree with above with following additions/corrections. Patient is a 32-year-old female with past medical history significant for factor V Leiden, protein S deficiency, and migraines that presented to the emergency room with left-sided upper and lower extremity numbness so currently with right- sided headache and blurry vision. Please see H&P for full details. Patient was found to have complicated migraine, left-sided numbness, and factor V Leiden. Patient was seen by neurologist and workshop manager/oncologist. Head CT per radiology showed no acute intracranial abnormalities. Neck MRA per radiologist showed normal MR angiography of the neck. Head and neck CTA per radiologist's showed normal CT angiography of the neck, unremarkable CT angiography of the brain. Head MRA per radiologist showed unremarkable arteriogram and venogram of the intracranial circulation. Brain MRI per radiologist showed unremarkable noncontrast enhanced MRI of the brain. Patient was treated with magnesium oxide, Toradol, Benadryl, and Zofran. Symptoms resolved. EEG per neurologist showed a normal awake and drowsy and sleep EEG. Patient was continued on her home aspirin. She was advised to continue magnesium oxide as an outpatient. Patient had no leukocytosis and was afebrile. Hemoglobin A1c was 5.5. Vitamin B12 was 505. Folate was 10.5. Patient was cleared for discharge by all consultants. Patient was discharged home. On day of discharge, patient stated she was feeling much better. Headache resolved. No eye blurriness. No left sided numbness. No chest pain or palpitations. No nausea, vomiting, or abdominal pain. No lightheadedness or dizziness. No fevers or chills. No diarhea or constipation. No dysuria. Physical exam: General: Awake and alert lying in bed in no acute distress. HEENT: Normocephalic, atraumatic. Extraocular muscles intact, pupils equal and reactive, no scleral icterus. Oropharynx is pink and moist. No pharyngeal erythema or exudate appreciated. Neck is supple. Cardiovascular: Regular rhythm. Normal S1, S2. No murmurs, rubs, or gallops appreciated Pulmonary: Normal respiratory effort. No rhonchi, rales, or wheezing appreciated. Gastrointestinal: Soft. Nontender. Nodistended. Positive bowel sounds all 4 quadrants. No guarding. Musculoskeletal: Normal range of motion all extremities. No calf tenderness. No edema appreciated. Central nervous system: AAOx3. CN 2-12 grossly intact. 5/5 muscle strength all extremities. Dermatologic: Skin warm and dry. Please see chart for full details. Follow up instructions: Patient to follow-up with primary care doctor within 3-5 days. Patient to follow up with neurologist Dr. Flood within 3-5 days. Patient to follow up with her hem/onc within 3-5 days. Patient to take medications as prescribed. All instructions explained to the patient in detail. Patient both understands and agrees to all instructions. Written instructions also given. Time spent in discharging the patient including chart review, medication reconciliation, discussion with the patient, medical record coder, consultants, and nursing staff was approximately 35 minutes.
== END 2018-06-20 16:44 | disposition home or self-care (01) | DRG 891 ==
LOC: ED 17:06 → ERH 18:38 → 2RNO 22:45
PROVIDERS: ADMIT Internal Medicine; ATTEND Hospitalist
DX: G43.109 Migraine with aura, not intractable, without status migrainosus (principal); D68.51 Activated protein C resistance; D68.59 Other primary thrombophilia; G57.82 Other specified mononeuropathies of left lower limb; G56.82 Other specified mononeuropathies of left upper limb; F17.210 Nicotine dependence, cigarettes, uncomplicated; Z79.82 Long term (current) use of aspirin; Z86.711 Personal history of pulmonary embolism